=== PATIENT | female | born 1970 | race Caucasian/White ===

== ENCOUNTER 2017-05-23 11:35 | Inpatient (IN) | payer OTHER, BC ==
[~2017-05-23] VITALS: Ht 180.3 cm; Wt 138.4 kg
[2017-05-23] MEDS ORDERED: ceFAZolin 2 GM PREMIX 50 ML ONE (11:41)
[2017-05-23] MEDS ORDERED: PROPOFOL 1000 MG/100 ML INJ 100 ML ONE (11:43)
[2017-05-23] MEDS ORDERED: GENTAMICIN 80 MG PREMIX 100 ML ONE (11:44)
[2017-05-23] MEDS ORDERED: DIPHTH/TETANUS/ACEL PERTUSSIS (BOOSTER) 0.5 ML VIAL/PFS IM ONE (11:44)
[2017-05-23] MEDS ORDERED: MORPHINE SULFATE 4 MG/ML INJ IV PUSH ONE (11:46)
[2017-05-23 11:58] VITALS: O2SAT 100
[2017-05-23] MEDS ORDERED: ROCURONIUM INJ 50 MG/5 ML SYRINGE IV PUSH ONE (12:00)
[2017-05-23] MEDS ORDERED: NORMOSOL R INJ 3,000 ML IV ONE (12:00)
[2017-05-23] MEDS ORDERED: PROPOFOL 200 MG/20 ML AMP IV ONE (12:00)
[2017-05-23] MEDS ORDERED: ONDANSETRON HCL 4 MG/2 ML VIAL IV ONE (12:00)
[2017-05-23] MEDS ORDERED: DEXAMETHASONE SOD PHOS 4 MG/ML VIAL IV ONE (12:00)
[2017-05-23] MEDS ORDERED: ceFAZolin INJ 1,000 MG VIAL IV ONE ×2 (12:00→19:06)
[2017-05-23 12:05] LABS: AUTOMATED NEUTROPHIL # 18.7 TH/MM3 (1.8-7.7); BASOPHIL # 0.1 TH/MM3 (0-0.2); BASOPHIL % 0.4 % (0.0-2.0); EOSINOPHIL # 0.1 TH/MM3 (0-0.4); EOSINOPHIL % 0.6 % (0.0-4.0); HEMOGLOBIN 13.2 GM/DL (11.6-15.3); LYMPH % 9.1 % (9.0-44.0); MEAN CELL VOLUME 93.1 FL (80.0-100.0); MEAN CORPUSCULAR HEMOGLOBIN 30.8 PG (27.0-34.0); MEAN CORPUSCULAR HGB CONC 33.1 % (32.0-36.0); MEAN PLATELET VOLUME 8.4 FL (7.0-11.0); MONO % 4.1 % (0.0-8.0); MONOCYTE # 0.9 TH/MM3 (0-0.9); NEUT % 85.8 % (16.0-70.0); PLATELET COUNT 349 TH/MM3 (150-450); RED BLOOD COUNT 4.29 MIL/MM3 (4.00-5.30); RED CELL DISTRIBUTION WIDTH 12.8 % (11.6-17.2); WHITE BLOOD COUNT 21.8 TH/MM3 (4.0-11.0)
[2017-05-23 12:11] LABS: INTERNATIONAL NORMALIZED RATIO 1.1 RATIO; PROTHROMBIN TIME - PATIENT 10.7 SEC (9.8-11.6)
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
[2017-05-23] MEDS ORDERED: IOHEXOL 350 MG/ML 10 ML VIAL (for RAD DIAG) IVCONTRAST ONE (12:18)
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
[2017-05-23] MEDS ORDERED: MAGNESIUM HYDROXIDE SUSP 30 ML CUP PO PRN (12:45)
[2017-05-23] MEDS ORDERED: HYDROmorphone HCL PF 2 MG/ML VIAL IV PUSH PRN (12:45)
[2017-05-23] MEDS ORDERED: BISACODYL 10 MG SUPP RECTAL PRN (12:45)
[2017-05-23] MEDS ORDERED: CHLORHEXIDINE GLUCONATE 2 % 1 PACK (2 CLOTHS) TOP PRN (12:45)
[2017-05-23] MEDS ORDERED: LACTULOSE SYRUP 20 GM/30 ML CUP PO PRN (12:45)
[2017-05-23] MEDS ORDERED: SENNOSIDES 8.6 MG TAB PO PRN (12:45)
[2017-05-23] MEDS ORDERED: MISCELLANEOUS NURSING INFORMATION XX SCH (12:45)
[2017-05-23] MEDS ORDERED: HYDROmorphone HCL PF 1 MG/ML VIAL IV PUSH ONE (13:00)
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
[2017-05-23 13:15] VITALS: O2SAT 100
[2017-05-23] MEDS ORDERED: LIDOCAINE 1%/EPINEPHrine 1:100,000 SOLN 30 ML VIAL ONE (13:17)
[2017-05-23] MEDS ORDERED: LORazepam 2 MG/ML VIAL ONE (13:20)
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
--- NOTE | 2017-05-23 14:25 | PD.OP ---
Operative Report Open complex left occipital wound 72 cm Postoperative Diagnosis: Open wound complex left occipital 7x2cm Procedure: Simple closure Anesthesia: 1% lidocaine with epinephrine Surgeon: Charisse Lei Specialty Department Supervisor(s): None Operation and Findings: 43-year-old female with stellate type complex wound left occipital area. Size is 72 cm Technique: Patient's left scalp was sterilely prepped and draped using the usual technique , the wound is 72 cm stellate type with multiple wound fragments, there is no current active bleeding, there is a hematoma. The hematoma was evacuated, irrigation was performed with normal saline and hydrogen peroxide. Proceeded with debridement of skin .to healthy wound edges. Closure was achieved nomination of julia and #3 nylon and Prolene. Patient tolerated procedure well. Charisse Lei MD May 23, 2017 14:25
[2017-05-23] MEDS: ACETAMINOPHEN 1000 MG/100 ML 100 ML IV SCH ×2 (14:27→17:54)
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
[2017-05-23] MEDS: LORazepam 2 MG/ML VIAL IV PUSH PRN ×2 (15:37→23:26)
[2017-05-23] MEDS: LIDOCAINE HCL 5% PATCH T-DERMAL SCH (16:00)
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
[2017-05-23] MEDS ORDERED: BUPIVACAINE HCL PF 0.25% 30 ML VIAL ONE (17:42)
[2017-05-23] MEDS ORDERED: GENTAMICIN SULFATE 80 MG/2 ML VIAL ONE ×2 (17:42→19:54)
[2017-05-23] MEDS: METHOCARBAMOL 500 MG TAB PO SCH ×2 (17:55→22:00)
[2017-05-23] MEDS: SODIUM CHLOR 0.9% 1000 ML INJ 1,000 ML IV SCH ×2 (17:55→22:00)
[2017-05-23] MEDS ORDERED: VANCOMYCIN HCL 1000 MG VIAL ONE (19:05)
[2017-05-23] MEDS ORDERED: ceFAZolin INJ 1,000 MG VIAL ONE (19:06)
[2017-05-23] MEDS ORDERED: SUGAMMADEX SODIUM 200 MG/2 ML VIAL IV PUSH ONE (19:57)
--- NOTE | 2017-05-23 20:41 | HHI.PR ---
Immediate Post Op Note Procedure Date: May 23, 2017 Pre Op Diagnosis: Left foot open fracture; Left third metatarsal Post Op Diagnosis: Left foot open fracture; Left third metatarsal Surgeon: Kristina Restrepo Lumber Tailer(s): None Procedure: Left foot debridement and irrigation of open fracture with laceration repair Findings: None Additional Information: None Complications: None Specimen(s) removed: None Estimated blood loss: less than 10cc Anesthesia: General Drains: None IVF Patient to: PACU Patient Condition: Good Kristina Restrepo DPM May 23, 2017 20:41
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
[2017-05-23] MEDS: REMOVE OLD PATCH T-DERMAL SCH (21:00)
[2017-05-23] MEDS: FAMOTIDINE 20 MG/2 ML VIAL IV PUSH SCH (21:00)
[2017-05-23] MEDS: DOCUSATE SODIUM 50 MG/SENNA 8.6 MG TAB PO SCH (21:00)
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
[2017-05-23] MEDS ORDERED: Post-op Orders (for Pharmacy) XX ONE (21:45)
[2017-05-23] MEDS ORDERED: MIDAZOLAM HCL 2 MG/2 ML VIAL ONE (21:45)
[2017-05-23] MEDS ORDERED: MORPHINE SULFATE 4 MG/ML INJ ONE (21:47)
--- NOTE | 2017-05-23 21:49 | RADRPT ---
EXAM DATE/TIME: 05/23/2017 21:06 [facility] COMPARISON: ANKLE LEFT LIMITED (AP&LAT), May 23, 2017, 11:38. INDICATIONS : External fixation of left ankle. MEDICAL HISTORY : None. SURGICAL HISTORY : None. ENCOUNTER: Subsequent ACUITY: 1 day PAIN SCORE: Non-responsive. LOCATION: Left Ankle FINDINGS: 2 images were recorded digitally in the operating room using C-arm during a placement of external fix ation hardware. CONCLUSION: Intraoperative images. Marlon Carey MD on May 23, 2017 at 21:46 Board Certified Radiologist. This report was verified electronically.
[2017-05-23] MEDS ORDERED: KETOROLAC TROMETHAMINE 30 MG/ML (IVP) VIAL ONE (21:57)
[2017-05-23] MEDS: METOPROLOL TARTRATE 5 MG/5 ML VIAL IV PUSH SCH ×5 (22:15→22:35)
[2017-05-23] MEDS ORDERED: KETOROLAC TROMETHAMINE 30 MG/ML (IVP) VIAL IV PUSH ONE (22:15)
[2017-05-24] VITALS (11 sets, daily range): BP systolic 102–133; BP diastolic 57–80; PULSE 86–126; RESP 12–20; TEMP 97.5–98.9; O2SAT 94–100
[2017-05-24] MEDS: ACETAMINOPHEN 1000 MG/100 ML 100 ML IV SCH ×2 (01:00→06:29)
[2017-05-24] MEDS: HYDROmorphone HCL PF 2 MG/ML VIAL IV PUSH PRN ×6 (03:53→21:26)
[2017-05-24] MEDS: CHLORHEXIDINE GLUCONATE 2 % 1 PACK (2 CLOTHS) TOP SCH (04:00)
[2017-05-24 04:32] LABS: AUTOMATED NEUTROPHIL # 10.9 TH/MM3 (1.8-7.7); BASOPHIL % 0.1 % (0.0-2.0); HEMATOCRIT 35.1 % (35.0-46.0); HEMOGLOBIN 12.2 GM/DL (11.6-15.3); LYMPH % 5.8 % (9.0-44.0); LYMPHOCYTE # 0.7 TH/MM3 (1.0-4.8); MEAN CELL VOLUME 93.5 FL (80.0-100.0); MEAN CORPUSCULAR HEMOGLOBIN 32.4 PG (27.0-34.0); MEAN CORPUSCULAR HGB CONC 34.7 % (32.0-36.0); MEAN PLATELET VOLUME 8.5 FL (7.0-11.0); MONO % 4.5 % (0.0-8.0); MONOCYTE # 0.6 TH/MM3 (0-0.9); NEUT % 89.6 % (16.0-70.0); PLATELET COUNT 244 TH/MM3 (150-450); RED BLOOD COUNT 3.75 MIL/MM3 (4.00-5.30); RED CELL DISTRIBUTION WIDTH 13.1 % (11.6-17.2); WHITE BLOOD COUNT 12.2 TH/MM3 (4.0-11.0)
[2017-05-24 04:58] LABS: BICARBONATE 25.2 MEQ/L (21.0-32.0); CALCIUM 7.6 MG/DL (8.5-10.1); CREATININE 0.56 MG/DL (0.50-1.00); MAGNESIUM 2.2 MG/DL (1.5-2.5)
[2017-05-24] MEDS: SODIUM CHLOR 0.9% 1000 ML INJ 1,000 ML IV SCH ×3 (06:00→22:00)
[2017-05-24] MEDS: METHOCARBAMOL 500 MG TAB PO SCH ×3 (06:29→19:42)
--- NOTE | 2017-05-24 06:53 | RADRPT ---
EXAM DATE/TIME: 05/24/2017 05:21 [facility] COMPARISON: CHEST SINGLE AP, May 23, 2017, 11:38. INDICATIONS : Follow up respiratory status. MEDICAL HISTORY : None. SURGICAL HISTORY : None. ENCOUNTER: Subsequent ACUITY: 4 - 6 days PAIN SCORE: Non-responsive. LOCATION: Bilateral chest FINDINGS: A single view of the chest demonstrates a mild cardiomegaly. Bilateral mostly basilar opacity in the lungs may represent atelectasis. No pneumothorax or significant effusion. CONCLUSION: 1. Mild basilar airspace disease. Multiple right rib fractures without significant pneumothorax. Bob Richards MD on May 24, 2017 at 6:49 Board Certified Radiologist. This report was verified electronically.
[2017-05-24] MEDS: DOCUSATE SODIUM 50 MG/SENNA 8.6 MG TAB PO SCH ×2 (08:21→19:41)
[2017-05-24] MEDS: FAMOTIDINE 20 MG/2 ML VIAL IV PUSH SCH ×2 (08:22→19:42)
[2017-05-24] MEDS: LIDOCAINE HCL 5% PATCH T-DERMAL SCH (08:22)
[2017-05-24] MEDS: SODIUM CHLORIDE 0.9% FLUSH 10 ML FLUSH IV FLUSH SCH ×2 (08:22→21:00)
[2017-05-24] MEDS ORDERED: ARMO180T PO (10:00)
[2017-05-24] MEDS: LORazepam 2 MG/ML VIAL IV PUSH PRN (10:00)
[2017-05-24] MEDS ORDERED: oxyCODONE/ACETAMINOPHEN 5 MG/325 MG TAB PO PRN (10:15)
[2017-05-24] MEDS: ENOXAPARIN SODIUM 30 MG/0.3 ML SYRINGE SQ SCH ×2 (10:15→21:25)
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
--- NOTE | 2017-05-24 12:07 | RADRPT ---
EXAM DATE/TIME: 05/24/2017 11:43 [facility] COMPARISON: FOOT LEFT COMPLETE ([id number]), May 23, 2017, 17:00. INDICATIONS : Left foot pain. Evalaute third metetarsal fracture. MEDICAL HISTORY : None. SURGICAL HISTORY : X-fix left ankle. ENCOUNTER: Subsequent ACUITY: 2 days PAIN SCORE: 8/10 LOCATION: Left foot. FINDINGS: There has been interval external fixation of the foot and ankle. There is a comminuted fracture invol ving the base of the third metatarsal with extension to the tarsometatarsal joint. The osseous struct ures demonstrate good anatomic alignment. Moderate adjacent soft tissue edema is present. CONCLUSION: External fixation hardware present. Comminuted nondisplaced fracture of the case of the third metatar umm with extension to the tarsometatarsal joint.. Merissa Wolf MD on May 24, 2017 at 12:03 Board Certified Radiologist. This report was verified electronically.
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
[2017-05-24] MEDS: SODIUM CHLORIDE 0.9% FLUSH 10 ML FLUSH IV FLUSH PRN (13:04)
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
[2017-05-24] MEDS ORDERED: ARMO240T PO (17:08)
[2017-05-24] MEDS ORDERED: MELO15TA20 PO (17:13)
[2017-05-24] MEDS: LORazepam 1 MG TAB PO PRN ×2 (17:16→23:00)
[2017-05-24] MEDS: oxyCODONE/ACETAMINOPHEN 10 MG/325 MG TAB PO PRN ×2 (19:46→23:00)
[2017-05-24] MEDS: REMOVE OLD PATCH T-DERMAL SCH (21:00)
[2017-05-25] MEDS: CHLORHEXIDINE GLUCONATE 2 % 1 PACK (2 CLOTHS) TOP SCH (04:00)
[2017-05-25] MEDS: HYDROmorphone HCL PF 2 MG/ML VIAL IV PUSH PRN ×4 (04:00→20:27)
[2017-05-25] MEDS: ONDANSETRON HCL 4 MG/2 ML VIAL IV PUSH PRN (04:00)
[2017-05-25] MEDS: SODIUM CHLOR 0.9% 1000 ML INJ 1,000 ML IV SCH (04:01)
[2017-05-25 04:06] LABS: AUTOMATED NEUTROPHIL # 7.9 TH/MM3 (1.8-7.7); BASOPHIL # 0.1 TH/MM3 (0-0.2); BASOPHIL % 0.7 % (0.0-2.0); EOSINOPHIL # 0.1 TH/MM3 (0-0.4); EOSINOPHIL % 0.8 % (0.0-4.0); HEMATOCRIT 31.1 % (35.0-46.0); HEMOGLOBIN 10.6 GM/DL (11.6-15.3); LYMPH % 18.3 % (9.0-44.0); MEAN CELL VOLUME 93.8 FL (80.0-100.0); MEAN CORPUSCULAR HEMOGLOBIN 31.8 PG (27.0-34.0); MEAN PLATELET VOLUME 8.2 FL (7.0-11.0); MONO % 7.9 % (0.0-8.0); MONOCYTE # 0.9 TH/MM3 (0-0.9); NEUT % 72.3 % (16.0-70.0); PLATELET COUNT 227 TH/MM3 (150-450); RED BLOOD COUNT 3.32 MIL/MM3 (4.00-5.30); RED CELL DISTRIBUTION WIDTH 13.1 % (11.6-17.2); WHITE BLOOD COUNT 10.9 TH/MM3 (4.0-11.0)
[2017-05-25 04:32] LABS: ALBUMIN 2.5 GM/DL (3.4-5.0); AST (GOT) 39 U/L (15-37); BICARBONATE 26.2 MEQ/L (21.0-32.0); BLOOD UREA NITROGEN 7 MG/DL (7-18); CALCIUM 8.2 MG/DL (8.5-10.1); CHLORIDE 108 MEQ/L (98-107); CREATININE 0.61 MG/DL (0.50-1.00); GLOMERULAR FILTRATION RATE 84 ML/MIN (>89); GLUCOSE,RANDOM 92 MG/DL (74-106); SODIUM (NA) 140 MEQ/L (136-145)
[2017-05-25 04:36] LABS: ALKALINE PHOSPHATASE 75 U/L (45-117); ALT (GPT) 19 U/L (10-53); TOTAL BILIRUBIN ADULT 0.4 MG/DL (0.2-1.0); TOTAL PROTEIN 5.7 GM/DL (6.4-8.2)
[2017-05-25 04:50] VITALS: BP 127/60; PULSE 95; RESP 18; TEMP 96.7; O2SAT 94
[2017-05-25] MEDS: METHOCARBAMOL 500 MG TAB PO SCH ×3 (05:41→22:47)
[2017-05-25] MEDS: oxyCODONE/ACETAMINOPHEN 10 MG/325 MG TAB PO PRN ×3 (05:41→22:59)
[2017-05-25] MEDS: LORazepam 1 MG TAB PO PRN ×2 (05:41→11:14)
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
[2017-05-25] MEDS: LIDOCAINE HCL 5% PATCH T-DERMAL SCH (07:49)
[2017-05-25] MEDS: FAMOTIDINE 20 MG/2 ML VIAL IV PUSH SCH (07:50)
[2017-05-25] MEDS: DOCUSATE SODIUM 50 MG/SENNA 8.6 MG TAB PO SCH ×2 (07:51→22:49)
[2017-05-25] MEDS: SODIUM CHLORIDE 0.9% FLUSH 10 ML FLUSH IV FLUSH SCH ×2 (07:51→20:27)
[2017-05-25 08:00] VITALS: BP 119/65; PULSE 115; RESP 20; TEMP 98.9; O2SAT 96
[2017-05-25] MEDS: THYROID 60 MG TAB PO SCH (11:10)
[2017-05-25] MEDS: ENOXAPARIN SODIUM 30 MG/0.3 ML SYRINGE SQ SCH ×2 (11:11→22:15)
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
[2017-05-25 12:00] VITALS: BP 126/82; PULSE 111; RESP 20; TEMP 98.3; O2SAT 96
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
[2017-05-25] MEDS: clonazePAM 0.5 MG TAB PO SCH ×2 (13:16→21:00)
[2017-05-25] MEDS: MAGNESIUM HYDROXIDE SUSP 30 ML CUP PO SCH ×2 (13:16→22:48)
[2017-05-25] MEDS: KETOROLAC TROMETHAMINE 30 MG/ML (IVP) VIAL IV PUSH SCH ×2 (13:17→22:46)
[2017-05-25 16:00] VITALS: BP 139/82; PULSE 103; RESP 20; TEMP 96.6; O2SAT 96
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
[2017-05-25] MEDS ORDERED: RESP: ALBUTEROL 2.5 MG/IPRATROPIUM 0.5 MG NEB (PRN) NEB (18:00)
[2017-05-25 19:55] VITALS: BP 143/96; PULSE 93; RESP 19; TEMP 96.7; O2SAT 97
[2017-05-25] MEDS: REMOVE OLD PATCH T-DERMAL SCH (21:00)
[2017-05-25] MEDS: RESP: ALBUTEROL 2.5 MG/IPRATROPIUM 0.5 MG NEB (SCH) NEB (21:11)
[2017-05-25] MEDS: FAMOTIDINE 20 MG TAB PO SCH (22:48)
[2017-05-25 23:15] VITALS: BP 130/98; PULSE 101; RESP 19; TEMP 96.9; O2SAT 96
[2017-05-26] VITALS (9 sets, daily range): BP systolic 119–151; BP diastolic 71–94; PULSE 60–115; RESP 18–21; TEMP 97–98.3; O2SAT 92–97
[2017-05-26] MEDS: RESP: ALBUTEROL 2.5 MG/IPRATROPIUM 0.5 MG NEB (SCH) NEB ×4 (03:59→21:14)
[2017-05-26] MEDS: THYROID 60 MG TAB PO SCH (04:32)
[2017-05-26] MEDS: oxyCODONE/ACETAMINOPHEN 10 MG/325 MG TAB PO PRN ×3 (04:32→18:35)
[2017-05-26] MEDS ORDERED: CHLORHEXIDINE GLUCONATE 2 % 1 PACK (2 CLOTHS) TOPICAL PRN (05:15)
[2017-05-26] MEDS ORDERED: SODIUM CHLORID 0.9% 500 ML IV PRN (05:15)
[2017-05-26] MEDS ORDERED: LACTATED RINGER'S 1000 ML IV PRN (05:15)
[2017-05-26] MEDS ORDERED: POVIDONE IODINE 5% (ANTISEPSIS KIT) 4 APPLICATIONS EACH NARE PRN (05:15)
[2017-05-26] MEDS: METHOCARBAMOL 500 MG TAB PO SCH ×3 (06:00→22:02)
--- NOTE | 2017-05-26 07:26 | PD.ORT.PN ---
Subjective Subjective Remarks s/p exfix left ankle s/p ORIF left proximal ulna by Dr Riley doing well. reports anxiety Objective Vitals Vital Signs Date Time Temp Pulse Resp B/P (MAP) Pulse Ox O2 Delivery O2 Flow Rate FiO2 05/25/17 23:15 96.9 101 19 130/98 (109) 96 05/25/17 19:55 96.7 93 19 143/96 (112) 97 05/25/17 16:00 96.6 103 20 139/82 (101) 96 05/25/17 12:00 98.3 111 20 126/82 (97) 96 05/25/17 08:00 98.9 115 20 119/65 (83) 96 I/O 05/25/17 05/25/17 05/25/17 05/26/17 05/26/17 05/26/17 07:00 15:00 23:00 07:00 15:00 23:00 Intake Total 480 ml 240 ml 360 ml Output Total 550 ml 650 ml 225 ml Balance -70 ml -410 ml 135 ml Intake Oral 480 ml 240 ml 360 ml Output Urine Total 550 ml 650 ml 225 ml # Bowel Movements 0 0 Result Diagram: 05/25/17 0330 05/25/17 0330 Imaging Last 24 hours Impressions Foot X-Ray 05/24/17 0000 Signed Impressions: Service Date/Time: Wednesday, May 24, 2017 11:43 - CONCLUSION: External fixation hardware present. Comminuted nondisplaced fracture of the case of the third metatarsal with extension to the tarsometatarsal joint.. Merissa Wolf MD Chest X-Ray 05/24/17 0000 Signed Impressions: Service Date/Time: Wednesday, May 24, 2017 05:21 - CONCLUSION: 1. Mild basilar airspace disease. Multiple right rib fractures without significant pneumothorax. Bob Richards MD Objective Remarks Awake, alert. NAD LUE: splint in place. Mild swelling about hand and fingers. Wiggles fingers. Sensation appears intact. BCR LLE: ex-fix and dressing in place without significant drainage. Wiggles toes. Sensation appears intact. BCR Assessment & Plan Assessment and Plan 1) POD#2 s/p ORIF L ulna and closed reduction L radial head, and application of external fixator left ankle fracture/dislocation -NWB LUE in splint and NWB LLE in ex-fix. Elevate LUE and LLE. -Plan for likely return to OR for L ankle this week once swelling and soft tissues improve. swelling still too great to proceed at this time. -Anticoagulation per trauma team. Ok for chemical anticoagulation from orthopedic standpoint. -resume diet today -npo after MN -hold lovenox after AM dose -will re-eval ankle for possible surgery tomorrow Colin Saxena/Environmental Adviser PA May 26, 2017 07:26
--- NOTE | 2017-05-26 08:22 | RADRPT ---
EXAM DATE/TIME: 05/26/2017 07:51 [facility] COMPARISON: CT THORAX W CONTRAST, May 23, 2017, 12:14. CHEST SINGLE AP, May 25, 2017, 5:27. INDICATIONS : Chest pain and shortness of breath. MEDICAL HISTORY : left arm fracture, right rib fractures. SURGICAL HISTORY : None. ENCOUNTER: Subsequent ACUITY: 1 day PAIN SCORE: 7/10 LOCATION: Bilateral chest FINDINGS: The examination demonstrates areas of platelike atelectasis in the lung bases. This is similar to pre vious dated 05/25/17. The heart is normal in size. Lungs are otherwise clear. The request states rib fractures. These are visible on the patient's CT of 05/23/17. They're not evide nt by chest x-ray. No pneumothorax is present. CONCLUSION: 1. No pneumothorax identified. 2. There is an atelectasis in the lung bases. 3. Patient's known rib fractures are not visualized. Jake Davis MD on May 26, 2017 at 8:19 Board Certified Radiologist. This report was verified electronically.
[2017-05-26] MEDS: LACTULOSE SYRUP 20 GM/30 ML CUP PO SCH (09:00)
[2017-05-26] MEDS: SODIUM CHLORIDE 0.9% FLUSH 10 ML FLUSH IV FLUSH SCH ×2 (09:00→20:34)
[2017-05-26] MEDS: DOCUSATE SODIUM 50 MG/SENNA 8.6 MG TAB PO SCH ×2 (09:00→20:33)
[2017-05-26] MEDS: LIDOCAINE HCL 5% PATCH T-DERMAL SCH (09:00)
[2017-05-26] MEDS: MAGNESIUM HYDROXIDE SUSP 30 ML CUP PO SCH ×2 (09:00→20:34)
[2017-05-26] MEDS: FAMOTIDINE 20 MG TAB PO SCH ×2 (10:10→20:33)
[2017-05-26] MEDS: clonazePAM 0.5 MG TAB PO SCH ×2 (10:10→20:34)
[2017-05-26] MEDS: HYDROmorphone HCL PF 2 MG/ML VIAL IV PUSH PRN ×3 (11:15→20:33)
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
[2017-05-26 12:32] LABS: AUTOMATED NEUTROPHIL # 9.8 TH/MM3 (1.8-7.7); BASOPHIL # 0.1 TH/MM3 (0-0.2); BASOPHIL % 0.5 % (0.0-2.0); EOSINOPHIL # 0.1 TH/MM3 (0-0.4); EOSINOPHIL % 1.2 % (0.0-4.0); HEMATOCRIT 32.4 % (35.0-46.0); HEMOGLOBIN 10.9 GM/DL (11.6-15.3); LYMPH % 9.1 % (9.0-44.0); LYMPHOCYTE # 1.1 TH/MM3 (1.0-4.8); MEAN CELL VOLUME 93.7 FL (80.0-100.0); MEAN CORPUSCULAR HEMOGLOBIN 31.5 PG (27.0-34.0); MEAN CORPUSCULAR HGB CONC 33.6 % (32.0-36.0); MEAN PLATELET VOLUME 8.3 FL (7.0-11.0); MONO % 6.9 % (0.0-8.0); MONOCYTE # 0.8 TH/MM3 (0-0.9); NEUT % 82.3 % (16.0-70.0); PLATELET COUNT 260 TH/MM3 (150-450); RED BLOOD COUNT 3.46 MIL/MM3 (4.00-5.30); RED CELL DISTRIBUTION WIDTH 12.9 % (11.6-17.2)
[2017-05-26 13:12] LABS: ALBUMIN 2.6 GM/DL (3.4-5.0); ALKALINE PHOSPHATASE 82 U/L (45-117); ALT (GPT) 32 U/L (10-53); AST (GOT) 54 U/L (15-37); BICARBONATE 29.6 MEQ/L (21.0-32.0); BLOOD UREA NITROGEN 8 MG/DL (7-18); CALCIUM 8.2 MG/DL (8.5-10.1); CHLORIDE 103 MEQ/L (98-107); CREATININE 0.65 MG/DL (0.50-1.00); GLOMERULAR FILTRATION RATE 98 ML/MIN (>89); GLUCOSE,RANDOM 90 MG/DL (74-106); SODIUM (NA) 137 MEQ/L (136-145); TOTAL BILIRUBIN ADULT 0.5 MG/DL (0.2-1.0); TOTAL PROTEIN 6.2 GM/DL (6.4-8.2)
[2017-05-26 13:19] LABS: BACTERIA, URINE RARE /hpf; BILIRUBIN, URINE NEG (NEG); BLOOD, URINE NEG (NEG); GLUCOSE,URINE NEG (NEG); KETONE, URINE NEG (NEG); MUCUS URINE FEW /lpf (OCC); NITRITE,URINE NEG (NEG); PH, URINE 6.5 (5.0-8.5); SQUAMOUS EPITHELIAL CELL URINE <1 /hpf (0-5); URINE COLOR YELLOW (YELLW/STRAW); URINE LEUKOCYTE ESTERASE TRACE (NEG)
[2017-05-26] MEDS: KETOROLAC TROMETHAMINE 30 MG/ML (IVP) VIAL IV PUSH SCH ×2 (14:43→22:02)
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
[2017-05-26] MEDS ORDERED: QUEtiapine FUMARATE 25 MG TAB PO SCH (14:45)
[2017-05-26] MEDS: QUEtiapine FUMARATE 25 MG TAB PO SCH ×2 (14:52→20:33)
[2017-05-26] MEDS: REMOVE OLD PATCH T-DERMAL SCH (20:35)
[2017-05-26] MEDS: BACITRACIN TOP OINT 15 GM TUBE TOPICAL SCH (20:35)
[2017-05-27] MEDS: oxyCODONE/ACETAMINOPHEN 10 MG/325 MG TAB PO PRN ×6 (00:19→22:45)
[2017-05-27] MEDS: HYDROmorphone HCL PF 2 MG/ML VIAL IV PUSH PRN ×6 (01:23→20:20)
[2017-05-27] MEDS: RESP: ALBUTEROL 2.5 MG/IPRATROPIUM 0.5 MG NEB (SCH) NEB ×4 (03:33→20:43)
[2017-05-27] MEDS: METHOCARBAMOL 500 MG TAB PO SCH ×3 (05:45→20:18)
[2017-05-27] MEDS: THYROID 60 MG TAB PO SCH (05:46)
[2017-05-27 05:56] LABS: AUTOMATED NEUTROPHIL # 6.1 TH/MM3 (1.8-7.7); BASOPHIL # 0.1 TH/MM3 (0-0.2); BASOPHIL % 0.7 % (0.0-2.0); EOSINOPHIL # 0.3 TH/MM3 (0-0.4); EOSINOPHIL % 2.8 % (0.0-4.0); HEMATOCRIT 33.9 % (35.0-46.0); HEMOGLOBIN 11.2 GM/DL (11.6-15.3); LYMPH % 20.6 % (9.0-44.0); LYMPHOCYTE # 1.8 TH/MM3 (1.0-4.8); MEAN CELL VOLUME 94.6 FL (80.0-100.0); MEAN CORPUSCULAR HEMOGLOBIN 31.3 PG (27.0-34.0); MEAN CORPUSCULAR HGB CONC 33.1 % (32.0-36.0); MEAN PLATELET VOLUME 8.1 FL (7.0-11.0); MONO % 7.5 % (0.0-8.0); MONOCYTE # 0.7 TH/MM3 (0-0.9); NEUT % 68.4 % (16.0-70.0); PLATELET COUNT 242 TH/MM3 (150-450); RED BLOOD COUNT 3.58 MIL/MM3 (4.00-5.30); RED CELL DISTRIBUTION WIDTH 13.1 % (11.6-17.2); WHITE BLOOD COUNT 8.9 TH/MM3 (4.0-11.0)
[2017-05-27 06:12] LABS: ALBUMIN 2.6 GM/DL (3.4-5.0); ALT (GPT) 38 U/L (10-53); AST (GOT) 55 U/L (15-37); BICARBONATE 28.9 MEQ/L (21.0-32.0); CALCIUM 8.2 MG/DL (8.5-10.1); CHLORIDE 104 MEQ/L (98-107); CREATININE 0.66 MG/DL (0.50-1.00); GLOMERULAR FILTRATION RATE 96 ML/MIN (>89); GLUCOSE,RANDOM 89 MG/DL (74-106); SODIUM (NA) 140 MEQ/L (136-145)
[2017-05-27 06:20] LABS: ALKALINE PHOSPHATASE 79 U/L (45-117); BLOOD UREA NITROGEN 10 MG/DL (7-18); TOTAL BILIRUBIN ADULT 0.5 MG/DL (0.2-1.0); TOTAL PROTEIN 6.2 GM/DL (6.4-8.2)
--- NOTE | 2017-05-27 06:43 | PD.ORT.PN ---
Subjective Subjective Remarks Resting comfortably with no new complaints Objective Vitals Vital Signs Date Time Temp Pulse Resp B/P (MAP) Pulse Ox O2 Delivery O2 Flow Rate FiO2 05/26/17 23:49 97 05/26/17 23:15 97.0 115 21 119/71 (87) 97 05/26/17 20:50 97.2 91 18 121/74 (90) 95 05/26/17 20:00 95 Room Air 05/26/17 16:00 98.3 110 18 133/72 (92) 97 05/26/17 15:48 97 21 05/26/17 12:00 98.0 110 18 151/81 (104) 95 05/26/17 08:00 97.8 105 18 126/74 (91) 94 05/26/17 07:27 Room Air I/O 05/26/17 05/26/17 05/26/17 05/27/17 05/27/17 05/27/17 07:00 15:00 23:00 07:00 15:00 23:00 Intake Total 0 ml 720 ml 480 ml 100 ml Output Total 425 ml 600 ml 300 ml Balance -425 ml 120 ml 180 ml 100 ml Intake Oral 0 ml 720 ml 480 ml IV Total 100 ml Output Urine Total 425 ml 600 ml 300 ml # Bowel Movements 1 0 0 Result Diagram: 05/27/17 0541 05/27/17 0541 Imaging Last 24 hours Impressions Foot X-Ray 05/24/17 0000 Signed Impressions: Service Date/Time: Wednesday, May 24, 2017 11:43 - CONCLUSION: External fixation hardware present. Comminuted nondisplaced fracture of the case of the third metatarsal with extension to the tarsometatarsal joint.. Merissa Wolf MD Chest X-Ray 05/24/17 0000 Signed Impressions: Service Date/Time: Wednesday, May 24, 2017 05:21 - CONCLUSION: 1. Mild basilar airspace disease. Multiple right rib fractures without significant pneumothorax. Bob Richards MD Objective Remarks Awake, alert. NAD LUE: splint in place. Mild swelling about hand and fingers. Wiggles fingers. Sensation appears intact. BCR LLE: ex-fix and dressing in place without significant drainage. Swelling +3. Wiggles toes. Sensation appears intact. BCR. Incision well approximated and healing well Assessment & Plan Assessment and Plan 1) POD#3 s/p ORIF L ulna and closed reduction L radial head, and application of external fixator left ankle fracture/dislocation -NWB LUE in splint and NWB LLE in ex-fix. Elevate LUE and LLE. -Plan for likely return to OR for L ankle this week once swelling and soft tissues improve. swelling still too great to proceed at this time. -1 dose of Lovenox this morning a 40 mg -resume diet today -npo after MN -will re-eval ankle for possible surgery tomorrow Harris Burns Jr. May 27, 2017 06:43
[2017-05-27] MEDS ORDERED: ENOXAPARIN SODIUM 40 MG/0.4 ML SYRINGE SQ ONE (06:45)
[2017-05-27 08:00] VITALS: BP 128/74; PULSE 98; RESP 18; TEMP 97.2; O2SAT 99
--- NOTE | 2017-05-27 08:17 | PD.POD ---
Subjective Podiatric Problems POD #3 left foot laceration, washout and closure. Left 3rd metatarsal fracture- non op. Pt is very emotional about her foot and hoping to have the ex fix removed from the ankle soon, but is over all feeling well. Pain score: 3 Past Med/Surg/Social History Social History Smoking Status: Former Smoker Objective Vital Signs Vital Signs Date Time Temp Pulse Resp B/P (MAP) Pulse Ox O2 Delivery O2 Flow Rate FiO2 05/26/17 23:49 97 05/26/17 23:15 97.0 115 21 119/71 (87) 97 05/26/17 20:50 97.2 91 18 121/74 (90) 95 05/26/17 20:00 95 Room Air 05/26/17 16:00 98.3 110 18 133/72 (92) 97 05/26/17 15:48 97 21 05/26/17 12:00 98.0 110 18 151/81 (104) 95 Coded Allergies: phenobarbital (Verified Allergy, Mild, 05/23/17) Physical Exam Remarks Left foot with dorsal fracture blisters but no signs of compartment syndrome. Swelling is mild/mod to ankle/foot, but soft and compressable. Mild ecchymosis. Laceration on dorsal medial foot is well coapted with all sutures intact. No drainage. No erythema. All pin sites are clean and dry. Assessment & Plan A/P 1)POD # 3 left foot laceration closure 2) left foot 3rd met fx - NWBing LLE -Dressing changes as needed for ankle fracture -No further plans from podiatry -Suture removal 2 weeks post op -F/U with 1 week after d/c Darya Conner DPM May 27, 2017 08:17
[2017-05-27] MEDS: QUEtiapine FUMARATE 25 MG TAB PO SCH ×2 (08:30→20:18)
[2017-05-27] MEDS: DOCUSATE SODIUM 50 MG/SENNA 8.6 MG TAB PO SCH ×2 (08:30→20:17)
[2017-05-27] MEDS: clonazePAM 0.5 MG TAB PO SCH ×2 (08:30→20:17)
[2017-05-27] MEDS: FAMOTIDINE 20 MG TAB PO SCH ×2 (08:31→20:17)
[2017-05-27] MEDS: MAGNESIUM HYDROXIDE SUSP 30 ML CUP PO SCH ×2 (08:31→20:20)
[2017-05-27] MEDS: LACTULOSE SYRUP 20 GM/30 ML CUP PO SCH (08:31)
[2017-05-27] MEDS: SODIUM CHLORIDE 0.9% FLUSH 10 ML FLUSH IV FLUSH SCH ×2 (08:32→20:20)
[2017-05-27] MEDS: LIDOCAINE HCL 5% PATCH T-DERMAL SCH (08:32)
[2017-05-27] MEDS: IBUPROFEN 600 MG TAB PO SCH ×3 (08:33→20:18)
[2017-05-27] MEDS: BACITRACIN TOP OINT 15 GM TUBE TOPICAL SCH ×2 (08:36→08:37)
[2017-05-27 08:56] VITALS: O2SAT 97
--- NOTE | 2017-05-27 10:46 | HHI.PYPN ---
Subjective Remarks Patient was seen today for psychiatric reevaluation. Chart was reviewed. The case was discussed with charge nurse. On psychiatric evaluation the patient is found talking by phone, she seems to be in a better mood, with a brighter affect are smiling often. She reports that she feels better today, she says that she has decided to get over "little things and focus in the principal stuff of my life that needs attention". She says that multiple friends and family members from [facility] to visit her between today and tomorrow. She denies suicidal and homicidal ideation, she denies visual and auditory hallucinations. She reports that current psychotropic regimen is helpful "to calm me down". She still complains about nurses no treating her well and not serving her medication on time. Mental Status Examination Appearance: Disheveled Consciousness: Alert Orientation: x4 Speech: Unremarkable Language: Adequate Fund of Knowledge: Inadequate Attention and Concentration: Adequate Memory: Unremarkable Mood: Angry, Sad, Anxious Affect: Irritable, Sad, Anxious Thought Process & Associations: Intact, Linear Thought Content: Appropriate Hallucination Type: None Delusion Type: None Suicidal Ideation: No Suicidal Plan: No Suicidal Intention: No Homicidal Ideation: No Homicidal Plan: No Insight: Poor Judgment: Poor Results Labs Test 05/26/17 11:51 05/26/17 12:16 05/26/17 12:55 05/27/17 05:41 White Blood Count 12.0 TH/MM3 8.9 TH/MM3 Red Blood Count 3.46 MIL/MM3 3.58 MIL/MM3 Hemoglobin 10.9 GM/DL 11.2 GM/DL Hematocrit 32.4 % 33.9 % Mean Corpuscular Volume 93.7 FL 94.6 FL Mean Corpuscular Hemoglobin 31.5 PG 31.3 PG Mean Corpuscular Hemoglobin Concent 33.6 % 33.1 % Red Cell Distribution Width 12.9 % 13.1 % Platelet Count 260 TH/MM3 242 TH/MM3 Mean Platelet Volume 8.3 FL 8.1 FL Neutrophils (%) (Auto) 82.3 % 68.4 % Lymphocytes (%) (Auto) 9.1 % 20.6 % Monocytes (%) (Auto) 6.9 % 7.5 % Eosinophils (%) (Auto) 1.2 % 2.8 % Basophils (%) (Auto) 0.5 % 0.7 % Neutrophils # (Auto) 9.8 TH/MM3 6.1 TH/MM3 Lymphocytes # (Auto) 1.1 TH/MM3 1.8 TH/MM3 Monocytes # (Auto) 0.8 TH/MM3 0.7 TH/MM3 Eosinophils # (Auto) 0.1 TH/MM3 0.3 TH/MM3 Basophils # (Auto) 0.1 TH/MM3 0.1 TH/MM3 CBC Comment DIFF FINAL DIFF FINAL Differential Comment Blood Urea Nitrogen 8 MG/DL 10 MG/DL Creatinine 0.65 MG/DL 0.66 MG/DL Random Glucose 90 MG/DL 89 MG/DL Total Protein 6.2 GM/DL 6.2 GM/DL Albumin 2.6 GM/DL 2.6 GM/DL Calcium Level 8.2 MG/DL 8.2 MG/DL Alkaline Phosphatase 82 U/L 79 U/L Aspartate Amino Transf (AST/SGOT) 54 U/L 55 U/L Alanine Aminotransferase (ALT/SGPT) 32 U/L 38 U/L Total Bilirubin 0.5 MG/DL 0.5 MG/DL Sodium Level 137 MEQ/L 140 MEQ/L Potassium Level 3.7 MEQ/L 3.7 MEQ/L Chloride Level 103 MEQ/L 104 MEQ/L Carbon Dioxide Level 29.6 MEQ/L 28.9 MEQ/L Anion Gap 4 MEQ/L 7 MEQ/L Estimat Glomerular Filtration Rate 98 ML/MIN 96 ML/MIN Urine Color YELLOW Urine Turbidity CLEAR Urine pH 6.5 Urine Specific [place] 1.020 Urine Protein NEG mg/dL Urine Glucose (UA) NEG mg/dL Urine Ketones NEG mg/dL Urine Occult Blood NEG Urine Nitrite NEG Urine Bilirubin NEG Urine Urobilinogen LESS THAN 2.0 MG/DL Urine Leukocyte Esterase TRACE Urine WBC 1 /hpf Urine Squamous Epithelial Cells <1 /hpf Urine Bacteria RARE /hpf Urine Mucus FEW /lpf Microscopic Urinalysis Comment CATH-CULTURE IND Date/Time Source Procedure Growth Status 05/26/17 12:55 Urine Catheterized Urine Urine Culture Pending Received Vitals/IOs Vital Signs Date Time Temp Pulse Resp B/P (MAP) Pulse Ox O2 Delivery O2 Flow Rate FiO2 05/27/17 08:56 97 05/26/17 23:15 97.0 115 21 119/71 (87) 05/26/17 20:00 Room Air 05/26/17 15:48 21 05/24/17 07:00 3.00 Intake and Output 05/27/17 05/27/17 05/28/17 08:00 16:00 00:00 Intake Total 100 ml Output Total 600 ml Balance -500 ml Assessment & Plan Problem List: (1) Mourning ICD Codes: F43.20 - Adjustment disorder, unspecified (2) Unspecified personality disorder ICD Codes: F60.9 - Personality disorder, unspecified (3) Poor impulse control ICD Codes: R45.87 - Impulsiveness (4) Adjustment disorder with disturbance of conduct ICD Codes: F43.24 - Adjustment disorder with disturbance of conduct Assessment & Plan: Patient today seems to be doing better. As per nurse still demanding, still irritable, difficult to handle the floor. Will increase Seroquel to 50 mg twice a day to help with impulse control, insomnia and anxiety. We'll follow-up Assessment & Plan Estimated LOS: days Justification for Cont. Inpt. No indication of psychiatric admission at this moment. Jeffrey Parr MD May 27, 2017 10:46
[2017-05-27] MEDS: fentaNYL 50 MCG/HR PATCH T-DERMAL SCH (12:48)
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
[2017-05-27 16:00] VITALS: BP 129/94; PULSE 122; RESP 18; TEMP 97.3; O2SAT 97
[2017-05-27] MEDS: REMOVE OLD PATCH T-DERMAL SCH (20:21)
[2017-05-27 20:45] VITALS: O2SAT 100
[2017-05-27 21:29] VITALS: BP 105/62; PULSE 62; RESP 16; TEMP 98.7; O2SAT 97
[2017-05-27] MEDS: ONDANSETRON HCL 4 MG/2 ML VIAL IV PUSH PRN (22:45)
[2017-05-27 23:10] VITALS: BP 114/52; PULSE 110; RESP 18; TEMP 97.3; O2SAT 98
[2017-05-28] VITALS (8 sets, daily range): BP systolic 112–122; BP diastolic 59–76; PULSE 76–120; RESP 18–20; TEMP 96.7–98.6; O2SAT 93–97
[2017-05-28] MEDS: HYDROmorphone HCL PF 2 MG/ML VIAL IV PUSH PRN ×6 (02:14→21:40)
[2017-05-28] MEDS: oxyCODONE/ACETAMINOPHEN 10 MG/325 MG TAB PO PRN ×5 (03:15→20:42)
[2017-05-28] MEDS: RESP: ALBUTEROL 2.5 MG/IPRATROPIUM 0.5 MG NEB (SCH) NEB ×4 (04:00→22:00)
[2017-05-28] MEDS: IBUPROFEN 600 MG TAB PO SCH ×3 (06:02→21:45)
[2017-05-28] MEDS: THYROID 60 MG TAB PO SCH (06:02)
[2017-05-28] MEDS: METHOCARBAMOL 500 MG TAB PO SCH ×3 (06:02→21:45)
--- NOTE | 2017-05-28 06:39 | PD.ORT.PN ---
Subjective Subjective Remarks s/p exfix left ankle s/p ORIF left proximal ulna by Dr Riley doing well. reports anxiety Objective Vitals Vital Signs Date Time Temp Pulse Resp B/P (MAP) Pulse Ox O2 Delivery O2 Flow Rate FiO2 05/28/17 06:09 96.8 94 18 121/67 (85) 96 05/27/17 23:10 97.3 110 18 114/52 (72) 98 05/27/17 21:29 98.7 62 16 105/62 (76) 97 05/27/17 20:45 100 21 05/27/17 17:37 18 05/27/17 16:00 97.3 122 18 129/94 (106) 97 05/27/17 14:53 22 05/27/17 13:49 20 05/27/17 13:49 20 05/27/17 08:56 97 05/27/17 08:00 97.2 98 18 128/74 (92) 99 I/O 05/27/17 05/27/17 05/27/17 05/28/17 05/28/17 05/28/17 07:00 15:00 23:00 07:00 15:00 23:00 Intake Total 100 ml 600 ml 720 ml 360 ml Output Total 600 ml Balance -500 ml 600 ml 720 ml 360 ml Intake Oral 0 ml 600 ml 720 ml 360 ml IV Total 100 ml Output Urine Total 600 ml # Voids 3 3 1 # Bowel Movements 0 1 0 0 Result Diagram: 05/27/17 0541 05/27/17 0541 Imaging Last 24 hours Impressions Foot X-Ray 05/24/17 0000 Signed Impressions: Service Date/Time: Wednesday, May 24, 2017 11:43 - CONCLUSION: External fixation hardware present. Comminuted nondisplaced fracture of the case of the third metatarsal with extension to the tarsometatarsal joint.. Merissa Wolf MD Chest X-Ray 05/24/17 0000 Signed Impressions: Service Date/Time: Wednesday, May 24, 2017 05:21 - CONCLUSION: 1. Mild basilar airspace disease. Multiple right rib fractures without significant pneumothorax. Bob Richards MD Objective Remarks Awake, alert. NAD LUE: splint in place. Mild swelling about hand and fingers. Wiggles fingers. Sensation appears intact. BCR LLE: ex-fix and dressing in place without significant drainage. Swelling +3. Wiggles toes. Sensation appears intact. BCR. Incision well approximated and healing well Assessment & Plan Assessment and Plan 1) POD#4 s/p ORIF L ulna and closed reduction L radial head, and application of external fixator left ankle fracture/dislocation -NWB LUE in splint and NWB LLE in ex-fix. Elevate LUE and LLE. -Plan for likely return to OR for L ankle this week once swelling and soft tissues improve. swelling still too great to proceed at this time. -1 dose of Lovenox this morning a 40 mg -resume diet today -npo after MN -will re-eval ankle for possible surgery tomorrow Colin Saxena/First Rolo PADRON May 28, 2017 06:39
[2017-05-28] MEDS ORDERED: ENOXAPARIN SODIUM 40 MG/0.4 ML SYRINGE SQ ONE (06:45)
[2017-05-28] MEDS: DOCUSATE SODIUM 50 MG/SENNA 8.6 MG TAB PO SCH ×2 (07:51→20:42)
[2017-05-28] MEDS: clonazePAM 0.5 MG TAB PO SCH ×2 (07:51→20:43)
[2017-05-28] MEDS: QUEtiapine FUMARATE 25 MG TAB PO SCH ×2 (07:51→20:43)
[2017-05-28] MEDS: FAMOTIDINE 20 MG TAB PO SCH ×2 (07:51→20:43)
[2017-05-28] MEDS: SODIUM CHLORIDE 0.9% FLUSH 10 ML FLUSH IV FLUSH SCH ×2 (07:52→20:47)
[2017-05-28] MEDS: LIDOCAINE HCL 5% PATCH T-DERMAL SCH (07:54)
[2017-05-28] MEDS: BACITRACIN TOP OINT 15 GM TUBE TOPICAL SCH (07:54)
[2017-05-28] MEDS: LACTULOSE SYRUP 20 GM/30 ML CUP PO SCH (08:01)
[2017-05-28] MEDS: MAGNESIUM HYDROXIDE SUSP 30 ML CUP PO SCH ×2 (08:01→20:45)
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
[2017-05-28] MEDS: REMOVE OLD PATCH T-DERMAL SCH (20:52)
[2017-05-29] MEDS: oxyCODONE/ACETAMINOPHEN 10 MG/325 MG TAB PO PRN (00:54)
[2017-05-29] MEDS: HYDROmorphone HCL PF 2 MG/ML VIAL IV PUSH PRN ×5 (01:53→21:36)
[2017-05-29] MEDS: RESP: ALBUTEROL 2.5 MG/IPRATROPIUM 0.5 MG NEB (SCH) NEB ×4 (05:06→21:08)
[2017-05-29 05:08] VITALS: BP_SYST 116; BP_SYST 95; BP_DIAS 116; BP_DIAS 67; PULSE 95; RESP 18; TEMP 97; O2SAT 92; O2SAT 95
[2017-05-29] MEDS: THYROID 60 MG TAB PO SCH (05:18)
[2017-05-29] MEDS: METHOCARBAMOL 500 MG TAB PO SCH ×3 (05:18→21:37)
[2017-05-29] MEDS: SODIUM CHLORIDE 0.9% FLUSH 10 ML FLUSH IV FLUSH PRN (05:20)
[2017-05-29 08:27] VITALS: BP 121/62; PULSE 88; RESP 17; TEMP 96.4; O2SAT 94
[2017-05-29] MEDS: DOCUSATE SODIUM 50 MG/SENNA 8.6 MG TAB PO SCH ×2 (08:30→21:37)
[2017-05-29] MEDS: clonazePAM 0.5 MG TAB PO SCH ×2 (08:31→21:37)
[2017-05-29] MEDS: FAMOTIDINE 20 MG TAB PO SCH ×2 (08:32→21:37)
[2017-05-29] MEDS: QUEtiapine FUMARATE 25 MG TAB PO SCH ×2 (08:32→21:37)
[2017-05-29] MEDS: LACTULOSE SYRUP 20 GM/30 ML CUP PO SCH (08:33)
[2017-05-29] MEDS: GABAPENTIN 300 MG CAP PO SCH ×3 (08:33→17:08)
[2017-05-29] MEDS: LIDOCAINE HCL 5% PATCH T-DERMAL SCH (08:34)
[2017-05-29] MEDS: BACITRACIN TOP OINT 15 GM TUBE TOPICAL SCH (08:35)
[2017-05-29] MEDS: SODIUM CHLORIDE 0.9% FLUSH 10 ML FLUSH IV FLUSH SCH ×2 (08:35→21:37)
[2017-05-29] MEDS: ENOXAPARIN SODIUM 30 MG/0.3 ML SYRINGE SQ SCH ×2 (08:35→21:37)
[2017-05-29] MEDS: MAGNESIUM HYDROXIDE SUSP 30 ML CUP PO SCH ×2 (08:36→21:37)
--- NOTE | 2017-05-29 09:27 | PD.ORT.PN ---
Subjective Subjective Remarks Resting comfortably with no new complaints Objective Vitals Vital Signs Date Time Temp Pulse Resp B/P (MAP) Pulse Ox O2 Delivery O2 Flow Rate FiO2 05/29/17 08:27 96.4 88 17 121/62 (81) 94 05/29/17 08:07 Room Air 05/29/17 05:08 97.0 95 18 116/67 (83) 95 05/28/17 23:50 96.7 76 18 115/76 (89) 93 05/28/17 22:02 97 21 05/28/17 21:42 18 05/28/17 19:20 97.6 114 18 122/59 (80) 96 05/28/17 18:31 18 05/28/17 17:00 98.6 110 18 112/75 (87) 96 05/28/17 16:29 18 05/28/17 12:08 97.9 116 20 122/69 (86) 95 I/O 05/28/17 05/28/17 05/28/17 05/29/17 05/29/17 05/29/17 07:00 15:00 23:00 07:00 15:00 23:00 Intake Total 360 ml 950 ml 720 ml 0 ml 0 ml Balance 360 ml 950 ml 720 ml 0 ml 0 ml Intake Oral 360 ml 950 ml 720 ml 0 ml IV Total 0 ml # Voids 1 1 2 1 # Bowel Movements 0 1 2 0 Result Diagram: 05/27/17 0541 05/27/17 0541 Imaging Last 24 hours Impressions Foot X-Ray 05/24/17 0000 Signed Impressions: Service Date/Time: Wednesday, May 24, 2017 11:43 - CONCLUSION: External fixation hardware present. Comminuted nondisplaced fracture of the case of the third metatarsal with extension to the tarsometatarsal joint.. Merissa Wolf MD Chest X-Ray 05/24/17 0000 Signed Impressions: Service Date/Time: Wednesday, May 24, 2017 05:21 - CONCLUSION: 1. Mild basilar airspace disease. Multiple right rib fractures without significant pneumothorax. Bob Richards MD Objective Remarks Awake, alert. NAD LUE: splint in place. Mild swelling about hand and fingers. Wiggles fingers. Sensation appears intact. BCR LLE: ex-fix and dressing in place without significant drainage. Swelling +2. Wiggles toes. Sensation appears intact. BCR. Incision well approximated and healing well Assessment & Plan Assessment and Plan 1) POD#5 s/p ORIF L ulna and closed reduction L radial head, and application of external fixator left ankle fracture/dislocation -NWB LUE in splint and NWB LLE in ex-fix. Elevate LUE and LLE. -Plan for likely return to OR for L ankle next week once swelling and soft tissues improve. swelling still too great to proceed at this time. - Lovenox -resume diet today -npo after MN thursday night -will re-eval ankle for possible surgery Thursday or Thursday Harris Burns Jr. May 29, 2017 09:27
[2017-05-29 12:12] VITALS: BP 123/62; PULSE 113; RESP 17; TEMP 97.4; O2SAT 93
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
[2017-05-29 16:00] VITALS: BP 106/61; PULSE 104; RESP 19; TEMP 98.1; O2SAT 94
[2017-05-29 21:30] VITALS: BP 136/67; PULSE 119; RESP 20; TEMP 99.1; O2SAT 96
[2017-05-29] MEDS: REMOVE OLD PATCH T-DERMAL SCH (22:13)
[2017-05-29 23:40] VITALS: BP 117/59; PULSE 123; RESP 20; TEMP 100.9; O2SAT 95
[2017-05-30 04:05] VITALS: BP 124/61; PULSE 105; RESP 18; TEMP 99.4; O2SAT 95
[2017-05-30] MEDS: HYDROmorphone HCL PF 2 MG/ML VIAL IV PUSH PRN ×3 (05:11→19:30)
[2017-05-30] MEDS: THYROID 60 MG TAB PO SCH (05:11)
[2017-05-30] MEDS: METHOCARBAMOL 500 MG TAB PO SCH ×3 (05:11→21:36)
[2017-05-30 07:36] VITALS: BP 101/55; PULSE 100; RESP 19; TEMP 97.9; O2SAT 94
[2017-05-30] MEDS: FAMOTIDINE 20 MG TAB PO SCH ×2 (08:55→19:32)
[2017-05-30] MEDS: clonazePAM 0.5 MG TAB PO SCH ×2 (08:56→19:31)
[2017-05-30] MEDS: QUEtiapine FUMARATE 25 MG TAB PO SCH ×2 (08:56→19:31)
[2017-05-30] MEDS: DOCUSATE SODIUM 50 MG/SENNA 8.6 MG TAB PO SCH ×2 (08:56→19:32)
[2017-05-30] MEDS: GABAPENTIN 300 MG CAP PO SCH ×3 (08:56→17:24)
[2017-05-30] MEDS: LACTULOSE SYRUP 20 GM/30 ML CUP PO SCH (08:57)
[2017-05-30] MEDS: MAGNESIUM HYDROXIDE SUSP 30 ML CUP PO SCH ×2 (08:57→19:32)
[2017-05-30] MEDS: ENOXAPARIN SODIUM 30 MG/0.3 ML SYRINGE SQ SCH ×2 (08:57→19:32)
[2017-05-30] MEDS: BACITRACIN TOP OINT 15 GM TUBE TOPICAL SCH (08:58)
[2017-05-30] MEDS: SODIUM CHLORIDE 0.9% FLUSH 10 ML FLUSH IV FLUSH SCH ×2 (08:58→19:32)
[2017-05-30] MEDS: LIDOCAINE HCL 5% PATCH T-DERMAL SCH (08:58)
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
[2017-05-30 11:44] VITALS: BP 118/68; PULSE 100; RESP 19; TEMP 98; O2SAT 94
[2017-05-30] MEDS ORDERED: REMOVE OLD DURAGESIC (FENTANYL) PATCH T-DERMAL SCH (12:00)
[2017-05-30] MEDS: fentaNYL 50 MCG/HR PATCH T-DERMAL SCH (12:59)
[2017-05-30] MEDS ORDERED: HYDROmorphone HCL PF 2 MG/ML VIAL IV PUSH ONE (15:00)
[2017-05-30 16:00] VITALS: BP 122/57; PULSE 100; RESP 19; TEMP 98.6; O2SAT 94
[2017-05-30] MEDS: traZODone HCL 50 MG TAB PO SCH (19:31)
[2017-05-30] MEDS: REMOVE OLD PATCH T-DERMAL SCH (19:33)
[2017-05-30 20:46] VITALS: BP 108/67; PULSE 111; RESP 19; TEMP 99.8; O2SAT 97
[2017-05-30 23:55] VITALS: BP 118/65; PULSE 107; RESP 20; TEMP 98.9; O2SAT 94
[2017-05-31 04:36] LABS: AUTOMATED NEUTROPHIL # 7.8 TH/MM3 (1.8-7.7); BASOPHIL # 0.1 TH/MM3 (0-0.2); BASOPHIL % 0.6 % (0.0-2.0); EOSINOPHIL # 0.2 TH/MM3 (0-0.4); EOSINOPHIL % 2.5 % (0.0-4.0); HEMATOCRIT 31.8 % (35.0-46.0); HEMOGLOBIN 10.6 GM/DL (11.6-15.3); LYMPH % 10.9 % (9.0-44.0); LYMPHOCYTE # 1.1 TH/MM3 (1.0-4.8); MEAN CELL VOLUME 94.4 FL (80.0-100.0); MEAN CORPUSCULAR HEMOGLOBIN 31.5 PG (27.0-34.0); MEAN CORPUSCULAR HGB CONC 33.4 % (32.0-36.0); MEAN PLATELET VOLUME 8.2 FL (7.0-11.0); MONO % 7.9 % (0.0-8.0); MONOCYTE # 0.8 TH/MM3 (0-0.9); NEUT % 78.1 % (16.0-70.0); PLATELET COUNT 327 TH/MM3 (150-450); RED BLOOD COUNT 3.37 MIL/MM3 (4.00-5.30); RED CELL DISTRIBUTION WIDTH 13.1 % (11.6-17.2)
[2017-05-31] MEDS: HYDROmorphone HCL PF 2 MG/ML VIAL IV PUSH PRN ×5 (04:56→21:45)
[2017-05-31] MEDS: THYROID 60 MG TAB PO SCH (04:57)
[2017-05-31] MEDS: METHOCARBAMOL 500 MG TAB PO SCH ×3 (04:57→21:35)
[2017-05-31 04:59] LABS: ALBUMIN 2.6 GM/DL (3.4-5.0); ALT (GPT) 50 U/L (10-53); AST (GOT) 60 U/L (15-37); BICARBONATE 30.1 MEQ/L (21.0-32.0); BLOOD UREA NITROGEN 8 MG/DL (7-18); CALCIUM 8.4 MG/DL (8.5-10.1); CHLORIDE 100 MEQ/L (98-107); CREATININE 0.75 MG/DL (0.50-1.00); GLOMERULAR FILTRATION RATE 83 ML/MIN (>89); GLUCOSE,RANDOM 124 MG/DL (74-106); SODIUM (NA) 136 MEQ/L (136-145)
[2017-05-31 05:00] LABS: ALKALINE PHOSPHATASE 132 U/L (45-117); TOTAL BILIRUBIN ADULT 0.6 MG/DL (0.2-1.0); TOTAL PROTEIN 6.6 GM/DL (6.4-8.2)
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
[2017-05-31 08:00] VITALS: BP 124/64; PULSE 107; RESP 19; TEMP 98.9; O2SAT 94
--- NOTE | 2017-05-31 08:15 | PD.ORT.PN ---
Subjective Subjective Remarks pain under control. feels her LLE is getting red. Objective Vitals Vital Signs Date Time Temp Pulse Resp B/P (MAP) Pulse Ox O2 Delivery O2 Flow Rate FiO2 05/30/17 23:55 98.9 107 20 118/65 (82) 94 05/30/17 20:46 99.8 111 19 108/67 (81) 97 05/30/17 16:20 05/30/17 16:00 98.6 100 19 122/57 (78) 94 05/30/17 11:44 98.0 100 19 118/68 (85) 94 05/30/17 09:24 I/O 05/30/17 05/30/17 05/30/17 05/31/17 05/31/17 05/31/17 07:00 15:00 23:00 07:00 15:00 23:00 Intake Total 950 ml 480 ml 360 ml Balance 950 ml 480 ml 360 ml Intake Oral 950 ml 480 ml 360 ml IV Total 0 ml 0 ml # Voids 2 1 1 # Bowel Movements 1 0 0 Result Diagram: 05/31/17 0400 05/31/17 0400 Imaging Last 24 hours Impressions Foot X-Ray 05/24/17 0000 Signed Impressions: Service Date/Time: Wednesday, May 24, 2017 11:43 - CONCLUSION: External fixation hardware present. Comminuted nondisplaced fracture of the case of the third metatarsal with extension to the tarsometatarsal joint.. Merissa Wolf MD Chest X-Ray 05/24/17 0000 Signed Impressions: Service Date/Time: Wednesday, May 24, 2017 05:21 - CONCLUSION: 1. Mild basilar airspace disease. Multiple right rib fractures without significant pneumothorax. Bob Richards MD Objective Remarks Awake, alert. NAD LUE: splint in place. Mild swelling about hand and fingers. Wiggles fingers. Sensation appears intact. BCR LLE: ex-fix and dressing in place without significant drainage. Swelling +2. Wiggles toes. Sensation appears intact. BCR. Incision well approximated and healing well. early signs of cellulitis LLE. Assessment & Plan Assessment and Plan 1) POD#7 s/p ORIF L ulna and closed reduction L radial head, and application of external fixator left ankle fracture/dislocation -NWB LUE in splint and NWB LLE in ex-fix. Elevate LUE and LLE. -Early signs of cellulits LLE - start vanco -Plan for likely return to OR for L ankle next week once swelling and soft tissues improve. swelling still too great to proceed at this time. - Lovenox -resume diet today -npo after MN thursday night -will re-eval ankle for possible surgery Thursday or Thursday Jorge Lutz May 31, 2017 08:15
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
[2017-05-31] MEDS: VANCOMYCIN INJ 1,000 MG in SODIUM CHLOR 0.9% 250 ML INJ 250 ML IV SCH ×2 (09:34→21:33)
[2017-05-31] MEDS: SODIUM CHLORIDE 0.9% FLUSH 10 ML FLUSH IV FLUSH SCH ×2 (09:34→21:00)
[2017-05-31] MEDS: ENOXAPARIN SODIUM 30 MG/0.3 ML SYRINGE SQ SCH (09:35)
[2017-05-31] MEDS: clonazePAM 0.5 MG TAB PO SCH ×2 (09:35→21:44)
[2017-05-31] MEDS: DOCUSATE SODIUM 50 MG/SENNA 8.6 MG TAB PO SCH ×2 (09:35→21:00)
[2017-05-31] MEDS: FAMOTIDINE 20 MG TAB PO SCH ×2 (09:35→21:36)
[2017-05-31] MEDS: GABAPENTIN 300 MG CAP PO SCH ×3 (09:36→18:16)
[2017-05-31] MEDS: MAGNESIUM HYDROXIDE SUSP 30 ML CUP PO SCH ×2 (09:36→21:00)
[2017-05-31] MEDS: LACTULOSE SYRUP 20 GM/30 ML CUP PO SCH (09:36)
[2017-05-31] MEDS: LIDOCAINE HCL 5% PATCH T-DERMAL SCH (09:37)
[2017-05-31] MEDS: QUEtiapine FUMARATE 25 MG TAB PO SCH ×2 (11:00→21:36)
[2017-05-31] MEDS: BACITRACIN TOP OINT 15 GM TUBE TOPICAL SCH (11:01)
[2017-05-31 12:00] VITALS: BP 96/69; PULSE 107; RESP 18; TEMP 98.1; O2SAT 97
[2017-05-31 16:00] VITALS: BP 120/65; PULSE 103; RESP 18; TEMP 98.5; O2SAT 98
[2017-05-31 17:57] VITALS: BP 112/50; PULSE 86; RESP 19; TEMP 99.2; O2SAT 98
[2017-05-31 20:45] VITALS: BP 119/66; PULSE 125; RESP 21; TEMP 100.8; O2SAT 94
[2017-05-31] MEDS: REMOVE OLD PATCH T-DERMAL SCH (21:00)
[2017-05-31] MEDS: traZODone HCL 50 MG TAB PO SCH (21:44)
[2017-05-31 23:29] VITALS: BP 132/65; PULSE 105; RESP 22; TEMP 97.3; O2SAT 94
[2017-06-01] VITALS (7 sets, daily range): BP systolic 120–145; BP diastolic 59–77; PULSE 107–126; RESP 18–21; TEMP 98.7–101; O2SAT 94–98
[2017-06-01] MEDS: HYDROmorphone HCL PF 2 MG/ML VIAL IV PUSH PRN ×5 (03:37→21:07)
[2017-06-01] MEDS: METHOCARBAMOL 500 MG TAB PO SCH ×3 (06:24→21:24)
[2017-06-01] MEDS: THYROID 60 MG TAB PO SCH (06:24)
--- NOTE | 2017-06-01 06:26 | PD.ORT.PN ---
Subjective Subjective Remarks s/p exfix left ankle s/p ORIF left proximal ulna by Dr Riley doing well. reports anxiety Objective Vitals Vital Signs Date Time Temp Pulse Resp B/P (MAP) Pulse Ox O2 Delivery O2 Flow Rate FiO2 06/01/17 04:12 98.7 107 21 143/75 (97) 94 05/31/17 23:29 97.3 105 22 132/65 (87) 94 05/31/17 21:40 Room Air 05/31/17 20:45 100.8 125 21 119/66 (83) 94 05/31/17 17:57 99.2 86 19 112/50 (70) 98 05/31/17 16:52 18 05/31/17 16:00 98.5 103 18 120/65 (83) 98 05/31/17 14:43 18 05/31/17 12:00 98.1 107 18 96/69 (78) 97 05/31/17 08:00 98.9 107 19 124/64 (84) 94 05/31/17 08:00 Room Air I/O 05/31/17 05/31/17 05/31/17 06/01/17 06/01/17 06/01/17 07:00 15:00 23:00 07:00 15:00 23:00 Intake Total 360 ml 480 ml Balance 360 ml 480 ml Intake Oral 360 ml 480 ml # Voids 1 4 1 # Bowel Movements 0 2 0 Result Diagram: 05/31/17 0400 05/31/17 0400 Imaging Last 24 hours Impressions Foot X-Ray 05/24/17 0000 Signed Impressions: Service Date/Time: Wednesday, May 24, 2017 11:43 - CONCLUSION: External fixation hardware present. Comminuted nondisplaced fracture of the case of the third metatarsal with extension to the tarsometatarsal joint.. Merissa Wolf MD Chest X-Ray 05/24/17 0000 Signed Impressions: Service Date/Time: Wednesday, May 24, 2017 05:21 - CONCLUSION: 1. Mild basilar airspace disease. Multiple right rib fractures without significant pneumothorax. Bob Richards MD Objective Remarks Awake, alert. NAD LUE: splint in place. Mild swelling about hand and fingers. Wiggles fingers. Sensation appears intact. BCR LLE: ex-fix and dressing in place without significant drainage. Swelling +2. Wiggles toes. Sensation appears intact. BCR. Incision well approximated and healing well. early signs of cellulitis LLE. Assessment & Plan Assessment and Plan 1) s/p ORIF L ulna and closed reduction L radial head, and application of external fixator left ankle fracture/dislocation -NWB LUE in splint and NWB LLE in ex-fix. Elevate LUE and LLE. -Early signs of cellulits LLE - start vanco -OR today for ORIF of left ankle Colin Saxena/[place] Clerk VITO Jun 01, 2017 06:26
[2017-06-01] MEDS ORDERED: VANCOMYCIN HCL 1000 MG VIAL ONE (06:55)
[2017-06-01] MEDS ORDERED: GENTAMICIN SULFATE 80 MG/2 ML VIAL ONE (06:56)
[2017-06-01] MEDS ORDERED: ceFAZolin 2 GM PREMIX 50 ML ONE (06:56)
[2017-06-01] MEDS ORDERED: ACETAMINOPHEN 1000 MG/100 ML 0 ML IV ONE (06:57)
[2017-06-01] MEDS ORDERED: Post-op Orders (for Pharmacy) XX ONE (07:30)
[2017-06-01] MEDS ORDERED: CHLORHEXIDINE GLUCONATE 2 % 1 PACK (2 CLOTHS) TOPICAL PRN (07:30)
[2017-06-01] MEDS ORDERED: LACTATED RINGER'S 1000 ML IV PRN (07:30)
[2017-06-01] MEDS ORDERED: POVIDONE IODINE 5% (ANTISEPSIS KIT) 4 APPLICATIONS EACH NARE PRN (07:30)
[2017-06-01] MEDS ORDERED: SODIUM CHLORID 0.9% 500 ML IV PRN (07:30)
[2017-06-01] MEDS ORDERED: METOPROLOL TARTRATE 25 MG TAB PO PRN (07:30)
--- NOTE | 2017-06-01 07:31 | PD.OP ---
cc: Jabari Sauceda MD Operative Report Date of Surgery: Jun 01, 2017 Preoperative Diagnosis: Displaced left distal tibia and fibula fractures Postoperative Diagnosis: Procedure: Removal of external fixation, Open reduction internal fixation left distal tibia and fibula fractures, stress exam of syndesmosis Anesthesia: Gen. Surgeon: Jabari Suaceda Completions Engineer(s): SHERWIN Sow PA-C The surgical procedure was assisted by my physician surveyor instrument assistant. My P.A. presence was necessary throughout this case for the manipulation and positioning of the surgical extremity. My P.A. was assisting me throughout the duration of this procedure. The skill set of a physician surveyor instrument assistant was medically necessary to complete this procedure. During the surgical case the surgical elastic knitter was working at the back table and the physician surveyor instrument assistant was directly assisting me. Operation and Findings: Implants used :ITS Patient was seen and evaluated preoperatively and found to have a displaced left distal tibia and fibula fractures. Informed consent was obtained after a detailed discussion of risk and benefits of surgery. The operative site was marked. Patient was brought to the OR, placed on the OR table, and given IV sedation and general endotracheal anesthesia. IV antibiotics were given preoperatively. A timeout procedure was performed. The external fixator was now removed. Clamps and bars were loosened. The bars and clamps were removed from the pins. The pins were now removed from the bone. Patient was now positioned in a lateral decubitus position. Extremities were well-padded. The operative leg was prepped with alcohol followed by Hibiclens and draped in the usual sterile fashion. Attention was turned towards the distal fibula. A 5-inch incision was made over the posterior aspect of the distal fibula. The subcutaneous tissue was dissected with Bovie. The fracture site was visualized. The fracture site was cleaned with curets. The fracture was now reduced. The fracture keyed into anatomic alignment. K-wires were used to hold provisional fixation. At this point attention was turned towards the posterior malleolus. The peroneal tendons were retracted. The posterior malleolus was exposed through this incision. There was mild comminution of this fragment. The posterior most fragment was carefully reduced. K wires were used to hold provisional fixation. A pointed tenaculum was used to compress fracture. Multiplanar fluoroscopy confirmed appropriate alignment of fracture. A 2.7 ITS plate was contoured to fit the posterior malleolus. Plate was provisionally held the bone with K wires. 2.7 cortical screws were used to compress plate to bone. Lag screws were placed through the plate to compress the fracture fragment. Fluoroscopy confirmed well aligned fracture with well-placed hardware. Attention was now turned back towards the fibula. A plate was selected and contoured to fit the distal fibula. The plate was provisionally held to bone with K-wires. 3.5 cortical screws were used to compress the plate to bone. Multiple screws were placed above and below the fracture. 3 locking screws were placed distally. Next, attention was turned to the syndesmosis. The syndesmosis was stressed. There was no widening of the syndesmosis with external rotation of the ankle. Incisions were thoroughly irrigated. The subcutaneous tissue was closed with 3- 0 Vicryl and the skin was closed with 3-0 nylon. Sterile dressings were applied. A well molded well-padded splint was applied. The patient was transferred to Recovery in stable condition. Needle and sponge counts were correct. Jabari Sauceda MD Jun 01, 2017 07:31
[2017-06-01] MEDS: MAGNESIUM HYDROXIDE SUSP 30 ML CUP PO SCH ×2 (09:00→21:00)
[2017-06-01] MEDS: LACTULOSE SYRUP 20 GM/30 ML CUP PO SCH (09:00)
[2017-06-01] MEDS: BACITRACIN TOP OINT 15 GM TUBE TOPICAL SCH (09:00)
[2017-06-01] MEDS: DOCUSATE SODIUM 50 MG/SENNA 8.6 MG TAB PO SCH ×2 (09:00→21:00)
--- NOTE | 2017-06-01 09:22 | RADRPT ---
EXAM DATE/TIME: 06/01/2017 08:58 [facility] COMPARISON: ANKLE LEFT LIMITED (AP&LAT), May 23, 2017, 21:06. INDICATIONS : Open reduction internal fixation left ankle. MEDICAL HISTORY : None. SURGICAL HISTORY : None. ENCOUNTER: Initial ACUITY: 1 day PAIN SCORE: Non-responsive. LOCATION: Left Ankle FINDINGS: 3 magnified C-arm spot views are labeled left and centered over the ankle joint. These show 2 orthope dic plates with anchoring screws. One involves the lateral cortical margin of the distal fibula and t he second involving the posterior cortical margin of the distal tibia. Good alignment is seen at both locations. CONCLUSION: Limited images as detailed above. Marlon Pappas Jr., MD on June 01, 2017 at 9:19 Board Certified Radiologist. This report was verified electronically.
[2017-06-01] MEDS ORDERED: DO NOT ADM ANY ANTICOAGULANT DRUGS PRN (09:47)
[2017-06-01] MEDS ORDERED: *morphine SULFATE 8 MG/ML PERIprocedure ONLY ONE ×2 (09:56→10:06)
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
[2017-06-01] MEDS ORDERED: MORPHINE SULFATE 4 MG/ML INJ ONE (09:57)
[2017-06-01] MEDS: clonazePAM 0.5 MG TAB PO SCH ×2 (11:15→21:22)
[2017-06-01] MEDS: GABAPENTIN 300 MG CAP PO SCH ×3 (11:15→16:55)
[2017-06-01] MEDS: FAMOTIDINE 20 MG TAB PO SCH ×2 (11:15→21:23)
[2017-06-01] MEDS: QUEtiapine FUMARATE 25 MG TAB PO SCH ×2 (11:15→21:22)
[2017-06-01] MEDS: LIDOCAINE HCL 5% PATCH T-DERMAL SCH (11:16)
[2017-06-01] MEDS: SODIUM CHLORIDE 0.9% FLUSH 10 ML FLUSH IV FLUSH SCH ×2 (11:17→21:23)
[2017-06-01] MEDS ORDERED: NEOSTIGMINE 5 MG/5 ML SYRINGE IV PUSH ONE (12:00)
[2017-06-01] MEDS ORDERED: ROCURONIUM INJ 50 MG/5 ML SYRINGE IV PUSH ONE (12:00)
[2017-06-01] MEDS ORDERED: PHENYLEPH/NS 1000 MCG/10 ML SYR IV ONE (12:00)
[2017-06-01] MEDS ORDERED: ONDANSETRON HCL 4 MG/2 ML VIAL IV ONE (12:00)
[2017-06-01] MEDS ORDERED: LIDOCAINE HCL 1% PF 5 ML SYRINGE OTHER ONE (12:00)
[2017-06-01] MEDS ORDERED: GLYCOPYRROLATE 1 MG/5 ML SYRINGE IV PUSH ONE (12:00)
[2017-06-01] MEDS ORDERED: PROPOFOL 200 MG/20 ML AMP IV ONE (12:00)
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
[2017-06-01] MEDS: ceFAZolin 2 GM PREMIX 50 ML IV SCH (14:39)
[2017-06-01] MEDS: VANCOMYCIN INJ 1,000 MG in SODIUM CHLOR 0.9% 250 ML INJ 250 ML IV SCH (21:08)
[2017-06-01] MEDS: traZODone HCL 50 MG TAB PO SCH (21:23)
[2017-06-01] MEDS: REMOVE OLD PATCH T-DERMAL SCH (21:24)
[2017-06-02] VITALS (7 sets, daily range): BP systolic 106–136; BP diastolic 56–72; PULSE 110–121; RESP 18–20; TEMP 99–101.6; O2SAT 92–97
[2017-06-02] MEDS: ceFAZolin 2 GM PREMIX 50 ML IV SCH ×4 (00:25→22:55)
[2017-06-02] MEDS: HYDROmorphone HCL PF 2 MG/ML VIAL IV PUSH PRN ×7 (01:25→21:20)
[2017-06-02] MEDS ORDERED: ACETAMINOPHEN 325 MG TAB PO PRN (01:30)
[2017-06-02 02:14] LABS: AUTOMATED NEUTROPHIL # 8.2 TH/MM3 (1.8-7.7); BASOPHIL % 0.4 % (0.0-2.0); EOSINOPHIL # 0.2 TH/MM3 (0-0.4); EOSINOPHIL % 2.3 % (0.0-4.0); HEMATOCRIT 28.7 % (35.0-46.0); HEMOGLOBIN 9.8 GM/DL (11.6-15.3); LYMPH % 8.8 % (9.0-44.0); LYMPHOCYTE # 0.9 TH/MM3 (1.0-4.8); MEAN CORPUSCULAR HEMOGLOBIN 32.1 PG (27.0-34.0); MEAN CORPUSCULAR HGB CONC 34.2 % (32.0-36.0); MEAN PLATELET VOLUME 7.9 FL (7.0-11.0); MONO % 10.1 % (0.0-8.0); MONOCYTE # 1.1 TH/MM3 (0-0.9); NEUT % 78.4 % (16.0-70.0); PLATELET COUNT 339 TH/MM3 (150-450); RED BLOOD COUNT 3.05 MIL/MM3 (4.00-5.30); RED CELL DISTRIBUTION WIDTH 12.9 % (11.6-17.2); WHITE BLOOD COUNT 10.5 TH/MM3 (4.0-11.0)
[2017-06-02 02:23] LABS: BICARBONATE 28.3 MEQ/L (21.0-32.0); CALCIUM 7.9 MG/DL (8.5-10.1); CREATININE 0.74 MG/DL (0.50-1.00)
[2017-06-02] MEDS: METHOCARBAMOL 500 MG TAB PO SCH ×3 (06:03→21:19)
[2017-06-02] MEDS: THYROID 60 MG TAB PO SCH (06:03)
[2017-06-02] MEDS ORDERED: XARE10TA PO (06:24)
[2017-06-02] MEDS ORDERED: VITA500012 PO (06:24)
[2017-06-02] MEDS ORDERED: ENDO10TA8 PO (06:24)
[2017-06-02] MEDS ORDERED: CALCTAB19 PO (06:24)
--- NOTE | 2017-06-02 06:28 | PD.ORT.PN ---
Subjective Subjective Remarks POD 1 s/p ORIF left ankle s/p ORIF left forearm by Dr Riley reports significant pain overnight in ankle. reports that feels as if the splint is too tight and throbbing on lateral ankle. Objective Vitals Vital Signs Date Time Temp Pulse Resp B/P (MAP) Pulse Ox O2 Delivery O2 Flow Rate FiO2 06/02/17 04:25 99.0 121 20 136/64 (88) 92 06/02/17 01:28 18 06/01/17 23:40 101.0 126 20 124/75 (91) 94 06/01/17 21:54 96 Nasal Cannula 3.00 06/01/17 21:37 18 06/01/17 19:50 99.1 123 18 130/64 (86) 96 06/01/17 16:53 97 Nasal Cannula 3.00 06/01/17 16:00 98.7 110 18 120/59 (79) 98 06/01/17 11:38 Nasal Cannula 2.00 06/01/17 11:10 99.3 115 18 145/77 (99) 97 06/01/17 10:45 98.7 105 14 143/76 (98) 95 Nasal Cannula 2 06/01/17 10:30 103 16 138/82 (100) 94 Nasal Cannula 2 06/01/17 10:15 108 17 151/90 (110) 97 Nasal Cannula 2 06/01/17 10:00 105 15 142/80 (100) 96 Nasal Cannula 2 06/01/17 09:47 98.5 103 12 162/80 (107) 100 Simple Mask 8 I/O 06/01/17 06/01/17 06/01/17 06/02/17 06/02/17 06/02/17 07:00 15:00 23:00 07:00 15:00 23:00 Intake Total 0 ml 1100 ml 50 ml 960 ml Output Total 100 ml Balance 0 ml 1000 ml 50 ml 960 ml Intake Oral 0 ml 960 ml IV Total 100 ml 50 ml Other 1000 ml Estimated Blood Loss 100 ml # Voids 2 2 2 # Bowel Movements 0 0 0 Result Diagram: 06/02/17 0135 06/02/17 0135 Imaging Last 24 hours Impressions Foot X-Ray 05/24/17 0000 Signed Impressions: Service Date/Time: Wednesday, May 24, 2017 11:43 - CONCLUSION: External fixation hardware present. Comminuted nondisplaced fracture of the case of the third metatarsal with extension to the tarsometatarsal joint.. Merissa Wolf MD Chest X-Ray 05/24/17 0000 Signed Impressions: Service Date/Time: Wednesday, May 24, 2017 05:21 - CONCLUSION: 1. Mild basilar airspace disease. Multiple right rib fractures without significant pneumothorax. Bob Richards MD Objective Remarks Awake, alert. NAD LUE: splint in place. Mild swelling about hand and fingers. Wiggles fingers. Sensation appears intact. BCR LLE: +short leg splint. intact. nvi. +cap refill. Assessment & Plan Assessment and Plan 1) s/p ORIF L ulna and closed reduction L radial head 2) Left Ankle fx s/p ORIF by Dr Taylor - POD 1 -NWB LUE in splint -cut back distal half of splint today at bedside to loosen. elevate and ice temporarily. -orthotech to re-wrap later today -NWB to LLE and maintain splint -DVT prophylaxis -work with therapy today and tomorrow and hopeful DC home later this week Colin Saxena/Refinery Operator Assistant VITO Jun 02, 2017 06:28
--- NOTE | 2017-06-02 06:53 | RADRPT ---
EXAM DATE/TIME: 06/02/2017 05:47 [facility] COMPARISON: CHEST SINGLE AP, May 31, 2017, 4:43. INDICATIONS : Chest pain, short of breath, pain in right breast MEDICAL HISTORY : rib fractures, left leg fracture SURGICAL HISTORY : left leg ENCOUNTER: Subsequent ACUITY: 1 week PAIN SCORE: 10/10 LOCATION: Bilateral chest FINDINGS: A single AP portable semierect view of the chest was obtained and demonstrates patchy opacity in both lung bases. Heart size is within normal limits. There is no perihilar edema. The patient is mildly r otated. The known left rib fractures are not well-visualized. There is no pneumothorax. CONCLUSION: 1. The known left rib fractures are not well-visualized and there is no pneumothorax. 2. Patchy opacity remains in both lung bases. Harris Tobias MD on June 02, 2017 at 6:50 Board Certified Radiologist. This report was verified electronically.
[2017-06-02] MEDS: LIDOCAINE HCL 5% PATCH T-DERMAL SCH (07:24)
[2017-06-02] MEDS: QUEtiapine FUMARATE 25 MG TAB PO SCH ×2 (07:24→21:19)
[2017-06-02] MEDS: clonazePAM 0.5 MG TAB PO SCH ×2 (07:24→21:19)
[2017-06-02] MEDS: MAGNESIUM HYDROXIDE SUSP 30 ML CUP PO SCH ×2 (07:25→21:20)
[2017-06-02] MEDS: DOCUSATE SODIUM 50 MG/SENNA 8.6 MG TAB PO SCH ×2 (07:25→21:19)
[2017-06-02] MEDS: SODIUM CHLORIDE 0.9% FLUSH 10 ML FLUSH IV FLUSH SCH ×2 (07:25→19:50)
[2017-06-02] MEDS: FAMOTIDINE 20 MG TAB PO SCH ×2 (07:25→21:19)
[2017-06-02] MEDS: LACTULOSE SYRUP 20 GM/30 ML CUP PO SCH (07:25)
[2017-06-02] MEDS: GABAPENTIN 300 MG CAP PO SCH ×3 (07:25→17:25)
[2017-06-02] MEDS: BACITRACIN TOP OINT 15 GM TUBE TOPICAL SCH (07:25)
[2017-06-02] MEDS: VANCOMYCIN INJ 1,000 MG in SODIUM CHLOR 0.9% 250 ML INJ 250 ML IV SCH ×2 (07:26→19:49)
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
--- NOTE | 2017-06-02 19:13 | PD.POD ---
Subjective Pain score: 8 Remarks SP Left ankle ORIF, in pain and very emotional, I explained I am following how her foot was healing Past Med/Surg/Social History Social History Smoking Status: Former Smoker Objective Vital Signs Vital Signs Date Time Temp Pulse Resp B/P (MAP) Pulse Ox O2 Delivery O2 Flow Rate FiO2 06/02/17 17:58 18 06/02/17 17:34 18 06/02/17 16:00 100.9 110 18 112/64 (80) 97 06/02/17 11:43 99.8 110 18 124/72 (89) 97 06/02/17 10:02 93 21 06/02/17 07:34 100.2 115 18 117/57 (77) 93 06/02/17 04:25 99.0 121 20 136/64 (88) 92 06/01/17 23:40 101.0 126 20 124/75 (91) 94 06/01/17 21:54 96 Nasal Cannula 3.00 06/01/17 19:50 99.1 123 18 130/64 (86) 96 Coded Allergies: phenobarbital (Verified Allergy, Mild, 05/23/17) Medications and IVs Administered Medications Medications (Trade) Dose Ordered Sig/Reema Route PRN Reason Start Time Stop Time Status Last Admin Dose Admin Ondansetron HCl (Zofran Inj) 4 mg Q6H PRN IV PUSH NAUSEA OR VOMITING 05/23/17 12:45 05/27/17 22:45 Senna/Docusate Sodium (Genesis-Colace) 1 tab BID PO 05/23/17 21:00 06/02/17 07:25 Methocarbamol (Robaxin) 500 mg Q8HR PO 05/23/17 16:00 06/02/17 14:01 Lidocaine HCl (Lidoderm 5% Patch.12 Hr) 1 patch DAILY T-DERMAL 05/23/17 16:00 06/02/17 07:24 Miscellaneous Information 1 HS T-DERMAL 05/23/17 21:00 06/01/17 21:24 Sodium Chloride (NS Flush) 2 ml UNSCH PRN IV FLUSH FLUSH AFTER USING IV ACCESS 05/23/17 21:45 05/29/17 05:20 Sodium Chloride (NS Flush) 2 ml BID IV FLUSH 05/24/17 09:00 06/02/17 07:25 Lorazepam (Ativan) 1 mg Q6HR PRN PO anxiety 05/24/17 10:15 05/25/17 11:14 Thyroid ([place] Thyroid) 240 mg DAILY@0600 PO 05/25/17 11:00 06/02/17 06:03 Lactulose (Lactulose Liq) 30 ml DAILY PO 05/26/17 09:00 06/02/17 07:25 Magnesium Hydroxide (Milk Of Magnesia Liq) 30 ml Q12HR PO 05/25/17 13:00 06/02/17 07:25 Famotidine (Pepcid) 20 mg BID PO 05/25/17 21:00 06/02/17 07:25 Bacitracin (Baciguent Oint) 1 applic DAILY TOPICAL 05/25/17 18:00 06/02/17 07:25 Albuterol/ Ipratropium (Duoneb Neb) 1 ampule Q2HR NEB PRN NEB wheezing 05/25/17 18:00 05/31/17 19:53 Clonazepam (KlonoPIN) 1 mg Q12HR PO 05/26/17 21:00 06/02/17 07:24 Quetiapine Fumarate (SEROquel) 50 mg BID PO 05/27/17 21:00 06/02/17 07:24 Oxycodone HCl (Roxicodone) 10 mg Q3HR PRN PO Pain 6-10 05/29/17 08:00 06/02/17 16:21 Gabapentin (Neurontin) 300 mg TID PO 05/29/17 09:00 06/02/17 17:25 Hydromorphone HCl (Dilaudid Pf Inj) 1 mg Q4H PRN IV PUSH Breakthrough pain 05/30/17 17:00 06/02/17 17:25 Trazodone HCl (Desyrel) 50 mg HS PO 05/30/17 21:00 06/01/17 21:23 Cefazolin Sodium/ Dextrose 50 ml @ 100 mls/hr Q8H IV 06/01/17 15:00 06/03/17 07:29 06/02/17 14:05 Vancomycin HCl 1000 mg/Sodium Chloride 250 ml @ 250 mls/hr Q12H IV 06/01/17 20:00 06/03/17 08:59 06/02/17 07:26 Other Results Laboratory Tests Test 06/02/17 01:35 White Blood Count 10.5 TH/MM3 Red Blood Count 3.05 MIL/MM3 Hemoglobin 9.8 GM/DL Hematocrit 28.7 % Mean Corpuscular Volume 94.0 FL Mean Corpuscular Hemoglobin 32.1 PG Mean Corpuscular Hemoglobin Concent 34.2 % Red Cell Distribution Width 12.9 % Platelet Count 339 TH/MM3 Mean Platelet Volume 7.9 FL Neutrophils (%) (Auto) 78.4 % Lymphocytes (%) (Auto) 8.8 % Monocytes (%) (Auto) 10.1 % Eosinophils (%) (Auto) 2.3 % Basophils (%) (Auto) 0.4 % Neutrophils # (Auto) 8.2 TH/MM3 Lymphocytes # (Auto) 0.9 TH/MM3 Monocytes # (Auto) 1.1 TH/MM3 Eosinophils # (Auto) 0.2 TH/MM3 Basophils # (Auto) 0.0 TH/MM3 CBC Comment DIFF FINAL Differential Comment Laboratory Tests Test 06/02/17 01:35 Blood Urea Nitrogen 6 MG/DL Creatinine 0.74 MG/DL Random Glucose 115 MG/DL Calcium Level 7.9 MG/DL Sodium Level 135 MEQ/L Potassium Level 4.0 MEQ/L Chloride Level 100 MEQ/L Carbon Dioxide Level 28.3 MEQ/L Anion Gap 7 MEQ/L Estimat Glomerular Filtration Rate 84 ML/MIN Microbiology Date/Time Source Procedure Growth Status 06/02/17 01:35 Blood Peripheral Aerobic Blood Culture Pending Received 06/02/17 01:35 Blood Peripheral Anaerobic Blood Culture Pending Received 06/02/17 01:30 Blood Peripheral Aerobic Blood Culture Pending Received 06/02/17 01:30 Blood Peripheral Anaerobic Blood Culture Pending Received Physical Exam Remarks Left foot ankle in splint- Anterior edge of foot dressing loosened to exposed only foot, medial 1st metatarsal with sutures intact, dorsal foot eschar approx 8cm x 6cm with no odor or drainage noted, foot is warm, good CFT to digits able to move digits. Assessment & Plan A/P Left foot laceration with fracture of 3 metatarsal with eschar- stable No signs of infection however everyother day Santyl is indicated. Hold on any surgical debridement for now.Woundcare order per nursing and request foot portion of splint/bandage remain somewhat loose. Will FU 2-3 days. Braden Eid DPM Jun 02, 2017 19:13
[2017-06-02] MEDS ORDERED: MAGN30S PO (19:22)
[2017-06-02] MEDS ORDERED: PERI PO (19:22)
[2017-06-02] MEDS: traZODone HCL 50 MG TAB PO SCH (21:19)
[2017-06-02] MEDS: REMOVE OLD PATCH T-DERMAL SCH (21:21)
[2017-06-03 01:00] VITALS: BP 114/72; PULSE 114; RESP 19; TEMP 99.1; O2SAT 93
[2017-06-03] MEDS: HYDROmorphone HCL PF 2 MG/ML VIAL IV PUSH PRN ×3 (01:18→10:39)
[2017-06-03 05:11] LABS: AUTOMATED NEUTROPHIL # 6.4 TH/MM3 (1.8-7.7); BASOPHIL % 0.5 % (0.0-2.0); EOSINOPHIL # 0.3 TH/MM3 (0-0.4); EOSINOPHIL % 3.1 % (0.0-4.0); HEMATOCRIT 26.7 % (35.0-46.0); HEMOGLOBIN 9.1 GM/DL (11.6-15.3); LYMPH % 14.4 % (9.0-44.0); LYMPHOCYTE # 1.3 TH/MM3 (1.0-4.8); MEAN CELL VOLUME 93.1 FL (80.0-100.0); MEAN CORPUSCULAR HEMOGLOBIN 31.8 PG (27.0-34.0); MEAN CORPUSCULAR HGB CONC 34.2 % (32.0-36.0); MEAN PLATELET VOLUME 8.2 FL (7.0-11.0); MONO % 9.9 % (0.0-8.0); MONOCYTE # 0.9 TH/MM3 (0-0.9); NEUT % 72.1 % (16.0-70.0); PLATELET COUNT 358 TH/MM3 (150-450); RED BLOOD COUNT 2.87 MIL/MM3 (4.00-5.30); RED CELL DISTRIBUTION WIDTH 13.1 % (11.6-17.2); WHITE BLOOD COUNT 8.9 TH/MM3 (4.0-11.0)
[2017-06-03 05:38] LABS: BICARBONATE 31.1 MEQ/L (21.0-32.0); CREATININE 0.75 MG/DL (0.50-1.00)
[2017-06-03] MEDS: ceFAZolin 2 GM PREMIX 50 ML IV SCH (06:19)
[2017-06-03] MEDS: THYROID 60 MG TAB PO SCH (06:20)
[2017-06-03] MEDS: METHOCARBAMOL 500 MG TAB PO SCH ×3 (06:20→22:32)
--- NOTE | 2017-06-03 06:49 | PD.ORT.PN ---
Subjective Subjective Remarks Resting comfortably with no new complaints Objective Vitals Vital Signs Date Time Temp Pulse Resp B/P (MAP) Pulse Ox O2 Delivery O2 Flow Rate FiO2 06/03/17 01:00 99.1 114 19 114/72 (86) 93 06/02/17 21:35 101.6 111 18 106/56 (73) 94 06/02/17 20:44 18 06/02/17 20:09 101.2 06/02/17 17:58 18 06/02/17 16:00 100.9 110 18 112/64 (80) 97 06/02/17 11:43 99.8 110 18 124/72 (89) 97 06/02/17 10:02 93 21 06/02/17 07:34 100.2 115 18 117/57 (77) 93 I/O 06/02/17 06/02/17 06/02/17 06/03/17 06/03/17 06/03/17 07:00 15:00 23:00 07:00 15:00 23:00 Intake Total 1964 ml 960 ml 250 ml 50 ml Balance 1964 ml 960 ml 250 ml 50 ml Intake Oral 1440 ml 960 ml IV Total 524 ml 250 ml 50 ml # Voids 5 3 # Bowel Movements 0 0 Result Diagram: 06/03/17 0353 06/03/17 0353 Imaging Last 24 hours Impressions Foot X-Ray 05/24/17 0000 Signed Impressions: Service Date/Time: Wednesday, May 24, 2017 11:43 - CONCLUSION: External fixation hardware present. Comminuted nondisplaced fracture of the case of the third metatarsal with extension to the tarsometatarsal joint.. Merissa Wolf MD Chest X-Ray 05/24/17 0000 Signed Impressions: Service Date/Time: Wednesday, May 24, 2017 05:21 - CONCLUSION: 1. Mild basilar airspace disease. Multiple right rib fractures without significant pneumothorax. Bob Richards MD Objective Remarks Awake, alert. NAD LUE: splint in place. Mild swelling about hand and fingers. Wiggles fingers. Sensation appears intact. BCR LLE: +short leg splint. intact. nvi. +cap refill. Assessment & Plan Assessment and Plan 1) s/p ORIF L ulna and closed reduction L radial head - Lambie 2) Left Ankle fx s/p ORIF by Dr Taylor - POD 2 -NWB LUE in splint -NWB to LLE and maintain splint -DVT prophylaxis -Orthopedically cleared for discharge to rehabilitation Follow-up with Dr. Taylor and Dr. Riley 2 weeks postop surgery Harris Burns Jr. Jun 03, 2017 06:49
[2017-06-03] MEDS: QUEtiapine FUMARATE 25 MG TAB PO SCH ×2 (07:51→19:46)
[2017-06-03] MEDS: MAGNESIUM HYDROXIDE SUSP 30 ML CUP PO SCH ×2 (07:51→19:47)
[2017-06-03] MEDS: VANCOMYCIN INJ 1,000 MG in SODIUM CHLOR 0.9% 250 ML INJ 250 ML IV SCH (07:51)
[2017-06-03] MEDS: LACTULOSE SYRUP 20 GM/30 ML CUP PO SCH (07:51)
[2017-06-03] MEDS: DOCUSATE SODIUM 50 MG/SENNA 8.6 MG TAB PO SCH ×2 (07:52→19:48)
[2017-06-03] MEDS: clonazePAM 0.5 MG TAB PO SCH ×2 (07:52→19:47)
[2017-06-03] MEDS: FAMOTIDINE 20 MG TAB PO SCH ×2 (07:52→19:47)
[2017-06-03] MEDS: SODIUM CHLORIDE 0.9% FLUSH 10 ML FLUSH IV FLUSH SCH ×2 (07:52→19:51)
[2017-06-03] MEDS: LIDOCAINE HCL 5% PATCH T-DERMAL SCH (07:53)
[2017-06-03] MEDS: BACITRACIN TOP OINT 15 GM TUBE TOPICAL SCH (07:53)
[2017-06-03 08:00] VITALS: BP 120/64; PULSE 109; RESP 18; TEMP 100.6; O2SAT 92
[2017-06-03] MEDS: PREGABALIN 75 MG CAP PO SCH ×2 (09:17→15:43)
[2017-06-03] MEDS ORDERED: COLLAGENASE OINT 30 GM TUBE TOPICAL SCH (10:00)
[2017-06-03 12:00] VITALS: BP 116/55; PULSE 115; RESP 18; TEMP 100.8; O2SAT 92
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
[2017-06-03] MEDS: HYDROmorphone HCL 2 MG TAB PO PRN ×2 (15:43→19:47)
[2017-06-03 16:00] VITALS: BP 130/77; PULSE 109; RESP 18; TEMP 99.7; O2SAT 95
[2017-06-03] MEDS ORDERED: METH500T3 PO (19:35)
[2017-06-03] MEDS ORDERED: CLON.5 PO (19:35)
[2017-06-03] MEDS ORDERED: OXYC-392 PO (19:35)
[2017-06-03] MEDS ORDERED: TRAZ50TA12 PO (19:35)
[2017-06-03] MEDS ORDERED: OXYC-395 PO (19:35)
[2017-06-03] MEDS ORDERED: LYRI75CA PO (19:35)
[2017-06-03] MEDS ORDERED: DILA2TAB4 PO (19:35)
[2017-06-03] MEDS: REMOVE OLD PATCH T-DERMAL SCH (19:49)
[2017-06-03 20:00] VITALS: BP 123/54; PULSE 112; RESP 20; TEMP 99; O2SAT 95
[2017-06-03] MEDS ORDERED: traZODone HCL 100 MG TAB PO SCH (21:00)
[2017-06-04] VITALS: BP 115/66; PULSE 108; RESP 20; TEMP 99.4; O2SAT 95
[2017-06-04] MEDS: HYDROmorphone HCL 2 MG TAB PO PRN ×4 (02:36→15:20)
[2017-06-04 04:00] VITALS: BP 122/80; PULSE 100; RESP 20; TEMP 99.2; O2SAT 95
[2017-06-04] MEDS: THYROID 60 MG TAB PO SCH (05:58)
[2017-06-04] MEDS: METHOCARBAMOL 500 MG TAB PO SCH ×2 (05:59→12:31)
--- NOTE | 2017-06-04 06:31 | PD.ORT.PN ---
Subjective Subjective Remarks POD 3 s/p ORIF left ankle s/p ORIF left forearm by Dr Riley reports pain in ankle. states has been arrange for inpatient rehab Objective Vitals Vital Signs Date Time Temp Pulse Resp B/P (MAP) Pulse Ox O2 Delivery O2 Flow Rate FiO2 06/04/17 00:00 99.4 108 20 115/66 (82) 95 06/03/17 20:00 99.0 112 20 123/54 (77) 95 06/03/17 18:26 18 06/03/17 16:43 20 06/03/17 16:43 20 06/03/17 16:00 99.7 109 18 130/77 (94) 95 06/03/17 12:00 100.8 115 18 116/55 (75) 92 06/03/17 11:13 20 06/03/17 08:00 100.6 109 18 120/64 (82) 92 I/O 06/03/17 06/03/17 06/03/17 06/04/17 06/04/17 06/04/17 07:00 15:00 23:00 07:00 15:00 23:00 Intake Total 2140 ml 600 ml Output Total 725 ml 650 ml Balance 2140 ml 600 ml -725 ml -650 ml Intake Oral 2040 ml 600 ml IV Total 100 ml Output Urine Total 725 ml 650 ml # Voids 4 2 1 1 # Bowel Movements 0 2 0 Result Diagram: 06/03/17 0353 06/03/17 0353 Imaging Last 24 hours Impressions Foot X-Ray 05/24/17 0000 Signed Impressions: Service Date/Time: Wednesday, May 24, 2017 11:43 - CONCLUSION: External fixation hardware present. Comminuted nondisplaced fracture of the case of the third metatarsal with extension to the tarsometatarsal joint.. Merissa Wolf MD Chest X-Ray 05/24/17 0000 Signed Impressions: Service Date/Time: Wednesday, May 24, 2017 05:21 - CONCLUSION: 1. Mild basilar airspace disease. Multiple right rib fractures without significant pneumothorax. Bob Richards MD Objective Remarks Awake, alert. NAD LUE: splint in place. Mild swelling about hand and fingers. Wiggles fingers. Sensation appears intact. BCR LLE: +short leg splint. intact. nvi. +cap refill. Assessment & Plan Assessment and Plan 1) s/p ORIF L ulna and closed reduction L radial head - Rosemary 2) Left Ankle fx s/p ORIF by Dr Taylor - POD 3 -NWB LUE in splint -NWB to LLE and maintain splint -DVT prophylaxis -Orthopedically cleared for discharge to rehabilitation Follow-up with Dr. Taylor and Dr. Riley 2 weeks postop surgery Colin Saxena/First Rolo PADRON Jun 04, 2017 06:31
[2017-06-04 08:00] VITALS: BP 132/64; PULSE 110; RESP 22; TEMP 100.4; O2SAT 93
[2017-06-04] MEDS: SODIUM CHLORIDE 0.9% FLUSH 10 ML FLUSH IV FLUSH SCH (08:41)
[2017-06-04] MEDS: clonazePAM 0.5 MG TAB PO SCH (08:41)
[2017-06-04] MEDS: FAMOTIDINE 20 MG TAB PO SCH (08:41)
[2017-06-04] MEDS: QUEtiapine FUMARATE 25 MG TAB PO SCH (08:41)
[2017-06-04] MEDS: PREGABALIN 75 MG CAP PO SCH ×3 (08:41→15:20)
[2017-06-04] MEDS: DOCUSATE SODIUM 50 MG/SENNA 8.6 MG TAB PO SCH (08:41)
[2017-06-04] MEDS: MAGNESIUM HYDROXIDE SUSP 30 ML CUP PO SCH (08:42)
[2017-06-04] MEDS: LIDOCAINE HCL 5% PATCH T-DERMAL SCH (08:42)
[2017-06-04] MEDS: LACTULOSE SYRUP 20 GM/30 ML CUP PO SCH (08:43)
[2017-06-04] MEDS: BACITRACIN TOP OINT 15 GM TUBE TOPICAL SCH (08:43)
[2017-06-04 12:00] VITALS: BP 106/56; PULSE 114; RESP 20; TEMP 100.4; O2SAT 94
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
[2017-06-04 16:00] VITALS: BP 145/80; PULSE 120; RESP 20; TEMP 100.9; O2SAT 95
[2017-06-04 16:20] VITALS: RESP 18
[2017-06-16] MEDS ORDERED: BEDSIDE COMMODE1 MI1 (13:48)
[2017-06-16] MEDS ORDERED: WHEEMIS3 (13:48)
[2017-06-18] MEDS ORDERED: PERI PO (08:25)
[2017-06-18] MEDS ORDERED: ARMO60TA PO (08:25)
[2017-06-18] MEDS ORDERED: XARE10TA PO (08:25)
[2017-06-18] MEDS ORDERED: POLY17S PO (08:25)
[2017-06-18] MEDS ORDERED: LACT PO (08:25)
[2017-06-18] MEDS ORDERED: QC B500O TOPICAL (08:25)
[2017-06-18] MEDS ORDERED: TRAZ50TA12 PO (08:25)
[2017-06-18] MEDS ORDERED: CALC250 PO (08:25)
[2017-06-18] MEDS ORDERED: CHOL1000 PO (08:25)
[2017-06-18] MEDS ORDERED: DOXY100T PO (08:25)
[2017-06-18] MEDS ORDERED: FAMO20TA2 PO (08:25)
[2017-06-18] MEDS ORDERED: OXYC1TAB35 PO (09:20)
[2017-06-18] MEDS ORDERED: DIAZ5 PO (09:20)
[2017-06-18] MEDS ORDERED: METH500T3 PO (10:01)
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
== END 2017-06-04 16:59 | DRG 493 ==
LOC: NEPI 11:35 → NEDA 12:01 → EDBD 12:01 → N03A 12:29 → N06B 05-24 12:16
PROVIDERS: ADMIT Surgery Trauma Surgery; ATTEND Surgery Trauma Surgery
PROC: 0JDR0ZZ Extraction of Left Foot Subcutaneous Tissue and Fascia, Open Approach (ICD-10-PCS; 2017-05-23)
PROC: 0HD0XZZ Extraction of Scalp Skin, External Approach (ICD-10-PCS; 2017-05-23)
PROC: 0HQ0XZZ Repair Scalp Skin, External Approach (ICD-10-PCS; 2017-05-23)
PROC: 0QSHXZZ Reposition Left Tibia, External Approach (ICD-10-PCS; 2017-05-23)
PROC: 0HQNXZZ Repair Left Foot Skin, External Approach (ICD-10-PCS; 2017-05-23)
PROC: 0PSJXZZ Reposition Left Radius, External Approach (ICD-10-PCS; 2017-05-23)
PROC: 0QHK35Z Insertion of External Fixation Device into Left Fibula, Percutaneous Approach (ICD-10-PCS; principal; 2017-05-23 18:40)
PROC: 0QSH05Z Reposition Left Tibia with External Fixation Device, Open Approach (ICD-10-PCS; 2017-05-23 18:40)
PROC: 0PSL04Z Reposition Left Ulna with Internal Fixation Device, Open Approach (ICD-10-PCS; 2017-05-23 18:40)
PROC: 0QSK04Z Reposition Left Fibula with Internal Fixation Device, Open Approach (ICD-10-PCS; 2017-06-01)
PROC: 0QSH04Z Reposition Left Tibia with Internal Fixation Device, Open Approach (ICD-10-PCS; 2017-06-01)
PROC: 0QPKX5Z Removal of External Fixation Device from Left Fibula, External Approach (ICD-10-PCS; 2017-06-01)
PROC: 0QPHX5Z Removal of External Fixation Device from Left Tibia, External Approach (ICD-10-PCS; 2017-06-01)
DX: S82.852A Displaced trimalleolar fracture of left lower leg, initial encounter for closed fracture (principal); S92.332B Displaced fracture of third metatarsal bone, left foot, initial encounter for open fracture; S22.42XA Multiple fractures of ribs, left side, initial encounter for closed fracture; S27.321A Contusion of lung, unilateral, initial encounter; S52.272A Monteggia's fracture of left ulna, initial encounter for closed fracture; S82.892A Other fracture of left lower leg, initial encounter for closed fracture; S01.01XA Laceration without foreign body of scalp, initial encounter; E03.9 Hypothyroidism, unspecified; G47.00 Insomnia, unspecified; F43.0 Acute stress reaction; S06.0X0A Concussion without loss of consciousness, initial encounter; S91.312A Laceration without foreign body, left foot, initial encounter; V23.5XXA Motorcycle passenger injured in collision with car, pick-up truck or van in traffic accident, initial encounter; Y92.410 Unspecified street and highway as the place of occurrence of the external cause
CPT/HCPCS: 27810; 29125; 70450; 71045; 71260; 72125; 72170; 73090; 73600; 73610; 73630; 74177; 76000; 76937; 80048; 80053; 81001; 83735; 85025; 85610; 85730; 86850; 86900; 86901; 87040; 87086; 87641; 90471; 90715; 94150; 94640; 94664; 94667; 94668; 96374; 96375; 96376; 99152; 99153; 99291; A0431-QM-SH; A0436-QM-SH; C1713; G0390; J0131; J0690; J1100; J1170; J1580; J1650; J1885; J2060; J2250; J2270; J2370; J2405; J2710; J3010; J3370; J7030; J7050; L0150; L0172; L8699; Q9967

== ENCOUNTER 2017-12-04 10:46 | Observation (INO) ==
[~2017-12-04 10:46] MED LIST: Lidocaine PF 1% Inj 5 ML Syringe INFILTRATN ONE
[2017-12-04] MEDS ORDERED: ceFAZolin 2 GM Premix Inj 2 GM/100 ML BAG IV.SIG SCH (11:20)
[2017-12-04] MEDS ORDERED: Metoprolol Tartrate 25 MG Tablet PO SCH (11:30)
[2017-12-04] MEDS ORDERED: Chlorhexidine Gluconate 2% 1 Pack (2 Cloths) TOPICAL SCH (11:30)
[2017-12-04] MEDS ORDERED: Chlorhexidine 4% Topical 120 APPLIC/120 ML Bottle TOPICAL SCH (11:30)
[2017-12-04] MEDS ORDERED: Sodium Chlor 0.9% Inj 500 ML IV.SIG SCH (12:00)
[2017-12-04 12:19] LABS: Baso # (Auto) 0.1 th/mm3 (0.0-0.2); Baso % (Auto) 0.6 % (0.0-2.0); Eos # (Auto) 0.2 th/mm3 (0.0-0.4); Eos % (Auto) 1.6 % (0.0-4.0); Hematocrit 44.2 % (35.0-46.0); Hemoglobin 14.5 gm/dL (11.6-15.3); Lymph # (Auto) 1.5 th/mm3 (1.0-4.8); Lymph % (Auto) 12.1 % (9.0-44.0); Mean Corpuscular HGB Conc 32.7 % (32.0-36.0); Mean Corpuscular Hemoglobin 30.3 pg (27.0-34.0); Mean Corpuscular Volume 92.6 fL (80.0-100.0); Mono # (Auto) 0.6 th/mm3 (0.0-0.9); Mono % (Auto) 4.7 % (0.0-8.0); Neut # (Auto) 10.3 th/mm3 (1.8-7.7); Platelet Count 348 th/mm3 (150-450); Red Blood Count 4.78 mil/mm3 (4.00-5.30); White Blood Count 12.8 th/mm3 (4.0-11.0)
[2017-12-04 12:45] LABS: Erythrocyte Sedimentation Rate 8 mm/hr (0-20)
[2017-12-04 13:05] LABS: Anion Gap 12 meq/L (5-15); Blood Urea Nitrogen 12 mg/dL (7-18); Calcium 8.9 mg/dL (8.5-10.1); Carbon Dioxide 21.2 meq/L (21.0-32.0); Chloride 107 meq/L (98-107); Glomerular Filtration Rate Greater Than 89 mL/min (>89); Glucose,Random 82 mg/dL (74-106); Sodium 140 meq/L (136-145)
[2017-12-04] MEDS ORDERED: Bupivacaine/Epinephrine Inj 0.25% 50 ML Vial ONE (13:41)
[2017-12-04] MEDS ORDERED: ceFAZolin 2 GM Premix Inj 2 GM/50 ML PIGGYBACK IV.SIG ONE (13:41)
--- NOTE | 2017-12-04 15:54 | XR ---
EXAM DATE: 12/04/2017 3:49 PM EDT AGE/SEX: 47 years / Female INDICATIONS: Non union fracture left forearm. ORIF forearm CLINICAL DATA: This is the patient's initial encounter. Patient reports that signs and symptoms have been present for 1 day and indicates a pain score of Nonresponsive. MEDICAL/SURGICAL HISTORY: . . ORIF forearm COMPARISON: [facility] – [place], FOREARM LEFT (2VWS), 06/13/2017. . FINDINGS: 3 views of the left forearm demonstrate plate and screw fixation of the proximal left ulna. There is a persistent fracture plane with some bony remodeling and periosteal reaction. Hardware appears intac t and well-positioned. CONCLUSION: 1. Left forearm ORIF, as above. Electronically signed by: Remy Black MD 12/04/2017 3:52 PM EDT
--- NOTE | 2017-12-04 16:04 | P.BOP ---
Date of procedure: 12/04/17 Procedure: Repair of left ulna nonunion Hardware removal Iliac crest autograft Implants: Synthes Anesthesia: GETA Surgeon: Marzena Riley MD Estimated blood loss (mL): 50 Pathology: none sent Condition: stable Disposition: PACU
[2017-12-04] MEDS ORDERED: Post-op Orders (for Pharmacy) OTHER STA (16:06)
--- NOTE | 2017-12-04 16:06 | P.PNOP ---
Subjective Interval history: POD#0 s/p left ulna nonunion repair with removal of hardware and iliac crest autograft Physical Exam Vital signs: Vital Signs 12/04/17 11:45 Temperature 99.1 F Pulse Rate 103 H Respiratory Rate 18 Blood Pressure 103/79 Pulse Oximetry 97 Intake & Output 12/03/17 12/04/17 12/04/17 18:59 06:59 18:59 Intake Total 50 / 50 Balance 50 / 50 Weight 118.5 kg Intake: IV 50 / 50 Ancef 2 GM Premix Inj 2 gm In 50 / 50 50 ml @ 0 mls/hr IV.SIG [facility] Rx#:[id number] Other: Weight On Admission 118.5 kg Results - Labs CBC & Chem 7: 12/04/17 11:30 12/04/17 11:30 Laboratory Results - last 24 hr 12/04/17 12/04/17 12/04/17 11:30 11:30 11:30 WBC 12.8 H RBC 4.78 Hgb 14.5 Hct 44.2 MCV 92.6 MCH 30.3 MCHC 32.7 RDW 15.0 Plt Count 348 MPV 9.0 Neut % (Auto) 81.0 H Lymph % (Auto) 12.1 Jones % (Auto) 4.7 Eos % (Auto) 1.6 Baso % (Auto) 0.6 Neut # (Auto) 10.3 H Lymph # (Auto) 1.5 Jones # (Auto) 0.6 Eos # (Auto) 0.2 Baso # (Auto) 0.1 WBC Differential . Differential Comment Auto diff final ESR 8 Sodium 140 Potassium 4.0 Chloride 107 Carbon Dioxide 21.2 Anion Gap 12 BUN 12 Creatinine 0.60 Cancelled Estimated GFR Greater than 89 Cancelled Random Glucose 82 Calcium 8.9 Blood Type Blood Type Recheck Antibody Screen 12/04/17 11:30 WBC RBC Hgb Hct MCV MCH MCHC RDW Plt Count MPV Neut % (Auto) Lymph % (Auto) Jones % (Auto) Eos % (Auto) Baso % (Auto) Neut # (Auto) Lymph # (Auto) Jones # (Auto) Eos # (Auto) Baso # (Auto) WBC Differential Differential Comment ESR Sodium Potassium Chloride Carbon Dioxide Anion Gap BUN Creatinine Estimated GFR Random Glucose Calcium Blood Type O Positive Blood Type Recheck Required Antibody Screen Negative - Imaging Impressions Forearm X-Ray 12/04/17 00:00 CONCLUSION: 1. Left forearm ORIF, as above. Assessment and Plan - Assessment and Plan POD#0 s/p repair left ulna nonunion with iliac crest autograft 1. NWB LUE in splint. Splint to remain in place until followup 2. Dressing change to left hip as needed 3. Intraop cultures obtained. No gross evidence of infection 4. Plan for discharge home POD#1 with followup as scheduled
[2017-12-04] MEDS ORDERED: HYDROmorphone PF Inj 2 MG/ML Vial ONE ×2 (16:19→16:38)
[2017-12-04] MEDS: HYDROmorphone PF Inj 2 MG/ML Vial IV.PUSH SCH ×4 (16:20→18:29)
[2017-12-04] MEDS ORDERED: fentaNYL Citrate Inj 100 MCG/2 ML Ampul ONE (16:24)
[2017-12-04] MEDS ORDERED: *Promethazine Inj 25 MG/ML Vial PERIprocedural use ONLY ONE (16:36)
[2017-12-04] MEDS ORDERED: Calcium/Vitamin D 250/125 MG Tablet PO SCH (18:00)
[2017-12-04] MEDS ORDERED: Ketorolac Inj 30 MG/ML (IVP) Vial ONE (18:02)
[2017-12-04] MEDS ORDERED: Ketorolac Inj 30 MG/ML (IVP) Vial IV.PUSH ONE (18:30)
[2017-12-04] MEDS: Morphine Inj 4 MG/ML Vial IV.PUSH PRN ×2 (20:11→23:59)
[2017-12-04] MEDS: Calcium/Vitamin D 250/125 MG Tablet PO SCH (22:28)
[2017-12-05] MEDS ORDERED: Temazepam 15 MG Capsule PO PRN (02:30)
[2017-12-05] MEDS: Morphine Inj 4 MG/ML Vial IV.PUSH PRN ×7 (02:51→23:01)
[2017-12-05] MEDS: oxyCODONE/Acetaminophen 10/325 Tablet PO PRN ×6 (06:09→21:34)
[2017-12-05] MEDS: Calcium/Vitamin D 250/125 MG Tablet PO SCH ×3 (09:14→17:00)
[2017-12-05] MEDS: Multivitamin/Minerals Therapeutic Tablet PO SCH (09:15)
[2017-12-06] MEDS: oxyCODONE/Acetaminophen 10/325 Tablet PO PRN ×4 (00:20→09:02)
[2017-12-06] MEDS: Senna/Docusate Sodium 8.6/50 MG Tablet PO SCH ×2 (00:28→09:02)
[2017-12-06] MEDS: Morphine Inj 4 MG/ML Vial IV.PUSH PRN ×2 (01:59→05:12)
--- NOTE | 2017-12-06 08:27 | P.PNOP ---
Subjective Interval history: Patient appears to be anxious. She states she is ready to go home. Pain controlled. Physical Exam Vital signs: Vital Signs 12/05/17 12:00 12/05/17 16:00 12/05/17 20:00 Temperature 98.3 F 97.6 F 98.4 F Pulse Rate 103 H 80 95 H Respiratory Rate 21 20 17 Blood Pressure 136/91 H 120/72 119/73 Pulse Oximetry 97 99 94 L 12/05/17 20:06 12/05/17 21:35 12/05/17 22:37 Temperature Pulse Rate Respiratory Rate 18 18 18 Blood Pressure Pulse Oximetry 12/05/17 23:05 12/06/17 00:00 12/06/17 04:00 Temperature 98.7 F 98.3 F Pulse Rate 100 H 86 Respiratory Rate 18 18 18 Blood Pressure 128/78 128/68 Pulse Oximetry 97 96 12/06/17 05:14 12/06/17 06:50 Temperature Pulse Rate Respiratory Rate 18 18 Blood Pressure Pulse Oximetry Intake & Output 12/05/17 12/06/17 12/06/17 18:59 06:59 18:59 Intake Total 100 / 100 Balance 100 / 100 Weight 127 kg Intake: IV 100 / 100 Ancef Inj 1,000 MG In NS Inj 100 / 100 100 ML @ 200 mls/hr IV.SIG Q8H [facility] Rx#:[id number] Other: # Voids 3 3 Date of Last Bowel Movement 11/26/17 # Bowel Movements 0 Narrative: LUE: dressing and splint C/D/I slight numbness to all digits good movement of digits good capillary refills. sling in place Left hip dressing C/D/I no signs of infection or drainage noted Results - Labs CBC & Chem 7: 12/04/17 11:30 12/04/17 11:30 Microbiology 12/04/17 14:02 Tissue - Elbow Gram Stain - Final 12/04/17 14:02 Tissue - Elbow Wound Culture - Preliminary No growth in 24 hours Assessment and Plan - Assessment and Plan POD#2 s/p repair left ulna nonunion with iliac crest autograft 1. NWB LUE in splint. Splint to remain in place until followup 2. Dressing change to left hip as needed 3. Intraop cultures obtained. No gross evidence of infection 4. Orthopedically stable for discharge with followup with Dr. Riley as scheduled 5. One-time dressing change to left hip. Clean with alcohol and apply a new dry coverderm.
[2017-12-06] MEDS: Calcium/Vitamin D 250/125 MG Tablet PO SCH (09:02)
[2017-12-06] MEDS: Multivitamin/Minerals Therapeutic Tablet PO SCH (09:02)
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
== END 2017-12-06 09:42 | disposition home or self-care (01) ==
LOC: N06 10:46 → HOR 10:46
PROVIDERS: ADMIT Orthopaedic Surgery Orthopaedic Surgery of the Spine; ATTEND Orthopaedic Surgery Orthopaedic Surgery of the Spine